=== PATIENT | female | born 1945 | race African-American/Black ===

== ENCOUNTER 2019-02-06 14:42 | Emergency (ER) | payer MEDICARE ==
[~2019-02-06] VITALS: Ht 170.2 cm; Wt 85.7 kg
[~2019-02-06 14:42] MED LIST: CLOPIDOGREL BIS75 MG PO; LORCET HD; ROSOVASTATIN; Z POTASSIUM CHLOR PO; Z.0.ACTONEL35 MG PO; Z.0.AMLODIPINE BESYL PO; Z.0.GABAPENTIN600 MG PO; Z.0.HYDROCHLOROTHIA2 PO; Z.0.LISINOPRIL20 MG PO; Z.1.ISOSORBIDE MONO3 PO; Z.2.HYDROCODON-ACE1; [UNRECOGNIZED DRUG - OTHER] PO
--- OUTSIDE RECORDS SUMMARY | 2019-02-06 14:45 | XMS REPORT ---
Author Author [facility] Address Unknown Phone Unavailable Care Team Providers Care Alarm Installer Name Role Phone Unavailable Unavailable Problems This patient has no known problems. Allergies, Adverse Reactions, Alerts This patient has no known allergies or adverse reactions. Medications This patient has no known medications. Results Test Description Test Time Test Comments Text Results Atomic Results Result Comments SCR MAMM LEFT [place] CAD DIGITAL 2018-10-14 14:43:44 - SCR MAMM LEFT [place] CAD DIGITALUNILATERAL LEFT DIGITAL SCREENING MAMMOGRAM 3D/2D WITH CAD: 10/14/2018CLINICAL: Asymptomatic. Digital breast tomosynthesis was performed in addition to routine CC and MLO views. Current mammographic images were evaluated by either a Search123 M-Vu or a Results [employer] ImageChecker CAD (computer aided detection system). Comparison is made to exams dated 05/28/2017 mammogram, mammogram, and 01/17/2015 mammogram - [facility]. The tissue of the left breast is predominantly fatty. Status post mastectomy right breast.There are benign calcifications in the left breast. There also are benign densities and intramammary nodes in the left breast. No suspicious mass, architectural distortion, malignant type calcification, or lymph node abnormality detected. Breast architecture is stable compared to prior exams.IMPRESSION: BENIGNThere is no mammographic evidence of malignancy. Resume annual screening mammography in one year. Herson Bacon M.D. ss/:10/14/2018 14:43:44 Financial Services Director: Joy NAQVI, [facility] sent: BIRADS 1-2 Normal Mammogram BI-RADS: 2 Benign
--- OUTSIDE RECORDS SUMMARY | 2019-02-06 14:45 | XMS REPORT | Summary of Care ---
Author Author [facility] - Health Organization [facility] - Health Address Unknown Phone Unavailable Care Team Providers Care Lead Shop Operator Name Role Phone Josseline Velasco PCP Encounter Details Care Team Description Date Type Department Doctor Unassigned, Valinda [address] [place] [address] 01/12/2019 Orders Only [facility] [address] [place] [address] Allergies Comments Active Allergy Reactions Severity Noted Date Iodine Hives 05/28/2017 documented as of this encounter (statuses as of 01/12/2019) Medications End Date Status Medication Sig Dispensed Refills Start Date Active cephALEXin 500 mg capsule 0 8 Active doxycycline 100 mg tablet 0 7 Active furosemide 20 mg tablet Take 20 mg by 0 mouth daily. Active clopidogrel 75 mg tablet Take 75 mg by 0 mouth daily. Active metoprolol succinate XL Take 200 mg 0 200 mg 24 hr tablet by mouth daily. Active hydroCHLOROthiazide 25 mg Take 25 mg by 0 tablet mouth daily. Active isosorbide mononitrate 60 Take 60 mg by 0 mg 24 hr tablet mouth. Active aspirin 81 mg chewable Take 81 mg by 0 tablet mouth daily. Active lisinopril 40 mg tablet Take 40 mg by 0 mouth daily. Active gabapentin 600 mg tablet Take by 0 mouth. Active Dexlansoprazole 60 mg Take by 0 capsule mouth. Active rosuvastatin 40 mg tablet Take 40 mg by 0 mouth at bedtime. Active linaclotide 145 mcg Take by 0 capsule mouth. documented as of this encounter (statuses as of 01/12/2019) Active Problems Problem Noted Date Postmenopause bleeding 06/25/2017 documented as of this encounter (statuses as of 01/12/2019) Social History Date Tobacco Use Types Packs/Day Years Used Never Smoker Smokeless Tobacco: Never Used Drinks/Week oz/Week Comments Alcohol Use ocassionally Yes Sex Assigned at Date Recorded Not on file Industry Job Start Date Occupation Not on file Not on file Not on file Travel End Travel History Travel Start No recent travel history available. documented as of this encounter Last Filed Vital Signs Not on filedocumented in this encounter Plan of Treatment Care Team Description Date Type Specialty Dustin Pretty MD [id number] [place] [address] [phone] 01/17/2019 Office Visit Ophthalmology Health Maintenance Due Date Last Done Comments HEPATITIS C (HCV) SCREEN 1945 DTaP,Tdap,and Td Vaccines 1965 (1 - Tdap) MAMMOGRAM 1986 COLONOSCOPY 1996 Zoster Recombinant 1996 Vaccine (SHINGRIX) (1 of 2) Medicare Wellness Visit 2011 Osteoporosis Screening 2011 PNEUMOCOCCAL VACCINES 65+ 2011 (1 of 2 - PCV13) INFLUENZA VACCINE (#1) 2019 documented as of this encounter Procedures Comments Procedure Name Priority Date/Time Associated Diagnosis REFERRAL- Routine 01/12/2019 REQUEST/RESPONSE 12:01 AM CDT documented in this encounter Results Not on filedocumented in this encounter Insurance Type Payer Benefit Subscriber ID Effective Phone Address Plan / Dates Group Medicare Adv [facility] - AARP [id number] 2017-P MANAGED MEDICARE MEDICARE resent COMPLETE documented as of this encounter
--- OUTSIDE RECORDS SUMMARY | 2019-02-06 14:46 | XMS REPORT | Summary of Care ---
Author Author Scottie Myrick, Luz Maria Ba Unknown Address Unknown Phone Unavailable Care Team Providers Care Bench Mover Name Role Phone LISBET Morrison, ASHLEY Unavailable Unavailable JAEL Morrison, IBAN Unavailable Unavailable ISABEL Hudson.ORadha, RAUL Unavailable Unavailable Scottie Myrick, Luz Maria Unavailable Unavailable LISBET DE LEÓN, ASHLEY Galvan Unavailable Unavailable ISABEL WEBER, RAUL E Unavailable Unavailable KITA Morrison, MANNIE Unavailable Unavailable Iban Soni MD Unavailable Unavailable ELSI DE LEÓN, SHIRLEY Troncoso Unavailable Unavailable Unavailable Unavailable Functional Status Name Dates Details Functional status health issues are not documented Status: Name Dates Details Cognitive status health issues are not documented Status: Problems Name Dates Details Abnormal vaginal bleeding (623.8, N93.9) Status: Active Abnormal glucose (790.29, R73.09) Status: Active Fatigue (780.79, R53.83) Status: Active Shingles outbreak (053.9, B02.9) Status: Active Influenza vaccination declined by patient (V64.06, Z28.21) Status: Active Pneumococcal vaccination declined by patient (V64.06, Z28.21) Status: Active Advance care planning (V65.49, Z71.89) Status: Active Chest pain (786.50, R07.9) Status: Active Osteoarthritis of hip (715.95, M16.9) Status: Active Irritable bowel (564.1, K58.9) Status: Active Shortness of breath (786.05, R06.02) Status: Active GERD without esophagitis (530.81, K21.9) Status: Active Pain pelvic (R10.2) Status: Active Atherosclerotic heart disease of [place] coronary artery without angina pectoris (414.01, I25.10) Status: Active Cath Placement Of Stent 3 Status: Active Flank pain, chronic (789.09, R10.9) Status: Active Grief (309.0, F43.21) Status: Active Ankle edema, bilateral (719.07, M25.471) Status: Active Limb pain (729.5, M79.609) Status: Active Otitis media, unspecified, left ear (382.9, H66.92) Status: Active Pre-syncope (780.2, R55) Status: Active Atherosclerosis of coronary artery (414.00, I25.10) Status: Active Breast cancer screening (V76.10, Z12.39) Status: Active Postmenopausal state (V49.81, Z78.0) Status: Active Hyperlipidemia (272.4, E78.5) Status: Active Hot flash, menopausal (627.2, N95.1) Status: Active Urinary incontinence (788.30, R32) Status: Active Generalized anxiety disorder (300.02, F41.1) Status: Active Need for hepatitis C screening test (V73.89, Z11.59) Status: Active Urinary symptom or sign (788.99, R39.9) Status: Active Post-menopausal bleeding (627.1, N95.0) Status: Active Prolapse of bladder Status: Active Post-menopausal bleeding (627.1, N95.0) Status: Active Frequency of urination (788.41, R35.0) Status: Active Essential (primary) hypertension (401.9, I10) Status: Active CAD (coronary artery disease) (414.00, I25.10) Status: Active Mild AI (aortic insufficiency) (424.1, I35.1) Status: Active Follow up (V67.9, Z09) Status: Active Urgency of urination (788.63, R39.15) Status: Active Urgency incontinence (788.31, N39.41) Status: Active Vaginal atrophy (627.3, N95.2) Status: Active Nocturia (788.43, R35.1) Status: Active Acquired nasolacrimal duct obstruction, 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 Quantity: 90 IBAN SONI M.D. Active Naproxen Sodium 550 MG Oral Tablet TAKE 1 TABLET TWICE DAILY WITH MEALS. * Quantity: 180 Refills: 1 ASHLEY FRAUSTO M.D. * Start : 10-Aug-2013 Active Isosorbide Mononitrate ER 60 MG Oral Tablet Extended Release 24 Hour TAKE 1 TABLET TWICE DAILY * Quantity: 180 Refills: 1 IBAN SONI M.D. * Start : 21-Mar-2014 Active Nitroglycerin 0.4 MG Sublingual Tablet Sublingual PLACE 1 TAB UNDER THE TONGUE EVERY 5 MINUTES FOR UP TO 3 DOSES NEEDED FOR [address] PAIN. CALL 911 IF PAIN PERSISTS 5 MINUTES AFTER 3rd DOSE * Quantity: 25 Refills: 6 IBAN SONI M.D. Active Tylenol CAPS PRN * Refills: 0 Active Furosemide 20 MG Oral Tablet TAKE 1 TABLET BY MOUTH DAILY * Quantity: 90 Refills: 1 IBAN SONI M.D. * Start : 28-Nov-2016 Active Lisinopril 40 MG Oral Tablet TAKE 1 TABLET DAILY * Quantity: 90 Refills: 1 IBAN SOIN M.D. Active Pravastatin Sodium 40 MG Oral Tablet TAKE 1 TABLET DAILY. * Quantity: 90 Refills: 1 ASHLEY FRAUSTO M.D. * Start : 05-Jan-2018 Active Aspir-Low 81 MG Oral Tablet Delayed Release TAKE 1 TABLET DAILY. * Quantity: 90 Refills: 1 IBAN SONI M.D. * Start : 18-Jun-2018 Active Temazepam 15 MG Oral Capsule TAKE 1 CAPSULE BY MOUTH EVERY DAY AT BEDTIME * Quantity: 90 Refills: 0 ASHLEY FRAUSTO M.D. * Start : 01-Dec-2018 Active Metoprolol Succinate ER 200 MG Oral Tablet Extended Release 24 Hour TAKE 1 TABLET AM AND 0.5 PM DAILY * Quantity: 180 Refills: 1 IBAN SONI M.D. Active Linzess 145 MCG Oral Capsule * Refills: 0 * Start : 10-Jan-2019 Active Trospium Chloride ER 60 MG Oral Capsule Extended Release 24 Hour Take 1 capsul qd * Quantity: 90 Refills: 0 ISABEL D.ORAUL Garcia * Start : 18-Jan-2019 Active hydrALAZINE HCl - 50 MG Oral Tablet TAKE 1 TABLET 3 TIMES DAILY. * Quantity: 90 Refills: 0 IBAN SONI M.D. * Start : 18-Jan-2019 Active Allergies and Adverse Reactions Name Dates Details Iodine SOLN (Allergy) Status: Active House Dust (Allergy) Status: Denied Past Medical History Name Dates Details History of chest pain (V13.89, Z87.898) Status: Resolved History of colonic polyps (V12.72, Z86.010) Status: Resolved History of History of colonoscopy (V45.89, Z98.890) Status: Resolved History of irritable bowel syndrome (V12.79, Z87.19) Status: Resolved History of Lower abdominal pain (789.09, R10.30) Status: Resolved History of malignant neoplasm of breast (V10.3, Z85.3) Status: Resolved History of osteoarthritis (V13.4, Z87.39) Status: Resolved Procedures Procedure Dates Details [N] 2D Echo complete, with Doppler 24828 Date: 07-Jan-2019 History of Breast Surgery Lumpectomy Completed History of Rotator Cuff Repair Completed History of Breast Surgery Mastectomy Completed History of Colonoscopy Completed History of Cath Stent Placement Completed Cath Placement Of Stent 3 Immunization Name Dates Details Immunizations not documented Family History Name Dates Details Family history of Denial Of Any Significant Medical History Comments: Family History Status: Active Name Dates Details Family history of Denial Of Any Significant Medical History Status: Active Name Dates Details Family history of Denial Of Any Significant Medical History Status: Active Name Dates Details Family history of hypertension (V17.49, Z82.49) Status: Active Name Dates Details Family history of myocardial infarction (V17.3, Z82.49) Status: Active Social History Name Dates Details - Status: Name Dates Details Never smoker Former smoker Vital Signs Date Test Result Details 30-Rmb-050261:14 BP Systolic 191 mm[Hg] Status: Comments: Location: LUE; Position: Sitting BP Diastolic 75 mm[Hg] Status: Comments: Location: LUE; Position: Sitting Height 62 in Status: Weight 179.375 lb Status: Body Mass Index Calculated 32.81 kg/m2 Status: Body Surface Area Calculated 1.83 m2 Status: Temperature 97.8 f Status: Comments: Method: Temporal Heart Rate 71 /min Status: Respiration Rate 16 /min Status: Physical Findings 0 Status: Comments: Pain Scale Physical Findings 0 Status: Comments: Alcohol Screen - How many times in the past yr have you had 5 (for M) or 4 (for F) or 4 (for all > 65yrs) or more drinks in a day? :05 BP Systolic 205 mm[Hg] Status: Comments: Location: LUE; Position: Sitting BP Diastolic 72 mm[Hg] Status: Comments: Location: LUE; Position: Sitting Heart Rate 63 /min Status: :03 BP Systolic 217 mm[Hg] Status: Comments: Location: LUE; Position: Sitting BP Diastolic 64 mm[Hg] Status: Comments: Location: LUE; Position: Sitting :40 BP Systolic 189 mm[Hg] Status: Comments: Location: LUE; Position: Sitting BP Diastolic 72 mm[Hg] Status: Comments: Location: LUE; Position: Sitting Heart Rate 84 /min Status: :20 BP Systolic 205 mm[Hg] Status: Comments: Location: LUE; Position: Sitting BP Diastolic 68 mm[Hg] Status: Comments: Location: E; Position: Sitting Height 62 in Status: Weight 180.4375 lb Status: Body Mass Index Calculated 33 kg/m2 Status: Body Surface Area Calculated 1.83 m2 Status: Temperature 97.7 f Status: Comments: Method: Oral Heart Rate 81 /min Status: :50 BP Systolic 168 mm[Hg] Status: Comments: Location: E; Position: Sitting BP Diastolic 73 mm[Hg] Status: Comments: Location: E; Position: Sitting Heart Rate 85 /min Status: Comments: Location: L Radial; :38 BP Systolic 179 mm[Hg] Status: Comments: Location: LUE; Position: Sitting BP Diastolic 80 mm[Hg] Status: Comments: Location: LUE; Position: Sitting Height 62 in Status: Weight 179 lb Status: Body Mass Index Calculated 32.74 kg/m2 Status: Body Surface Area Calculated 1.82 m2 Status: Heart Rate 87 /min Status: Comments: Location: L Radial; Results Date Description Value Details Results not documented Plan of Care Name Dates Details Planned Observations Planned Goals not documented Planned Encounters Appointment; CLEMENTINA MCCANN On: 08-Jul-2019 9:00 Appointment; IBAN SONI M.D. On: 08-Jul-2019 10:00 Interventions Provided Medication Changes* hydrALAZINE HCl - 50 MG Oral Tablet - Renew Instructions Name Dates Details Instructions not documented Encounters Appointment; ASHLEY FRAUSTO M.D. Encounter Diagnosis: Problem not documented On: 29-Apr-2017 13:45 Appointment; IBAN SONI M.D. Encounter Diagnosis: Problem not documented On: 05-Jun-2017 11:20 Appointment; LASHAWNGREGOR-MS, ECHO Encounter Diagnosis: Problem not documented On: 04-Dec-2017 13:00 Appointment; IBAN SONI M.D. Encounter Diagnosis: Problem not documented On: 04-Dec-2017 14:00 Appointment; ASHLEY FRAUSTO M.D. Encounter Diagnosis: Problem not documented On: 15-Dec-2017 11:15 Appointment; ASHLEY FRAUSTO M.D. Encounter Diagnosis: Problem not documented On: 05-Jan-2018 9:00 Appointment; GARO DELUNA M.D. Encounter Diagnosis: Problem not documented On: 27-Jan-2018 13:45 Appointment; ASHLEY FRAUSTO M.D. Encounter Diagnosis: Problem not documented On: 22-Feb-2018 14:00 Appointment; GARO DELUNA M.D. Encounter Diagnosis: Problem not documented On: 21-Apr-2018 10:30 Appointment; IBAN SONI M.D. Encounter Diagnosis: Problem not documented On: 18-Jun-2018 10:20 Appointment; LASHAWNGREGOR-MS, NUCLEAR Encounter Diagnosis: Problem not documented On: 07-Jul-2018 11:00 Appointment; IBAN SONI M.D. Encounter Diagnosis: Problem not documented On: 07-Jul-2018 16:20 Appointment; ASHLEY FRAUSTO M.D. Encounter Diagnosis: Problem not documented On: 29-Jul-2018 14:45 Appointment; IBAN SONI M.D. Encounter Diagnosis: Problem not documented On: 03-Aug-2018 10:20 Appointment; ASHLEY FRAUSTO M.D. Encounter Diagnosis: Problem not documented On: 01-Dec-2018 12:30 Appointment; RAUL HALL D.O. Encounter Diagnosis: Problem not documented On: 13-Dec-2018 12:45 Appointment; IBAN SONI M.D. Encounter Diagnosis: Problem not documented On: 07-Jan-2019 10:20 Appointment; RAUL HALL D.O. Encounter Diagnosis: Problem not documented On: 10-Jan-2019 15:10 Appointment; ASHLEY FRAUSTO M.D. Encounter Diagnosis: Problem not documented On: 31-Jan-2019 10:00
--- OUTSIDE RECORDS SUMMARY | 2019-02-06 14:46 | XMS REPORT | Summary of Care ---
Author Author [facility] - Health Organization [facility] - Health Address Unknown Phone Unavailable Care Team Providers Care Manager Marketing Name Role Phone Josselien Velasco PCP Reason for Visit * Reason Comments EYES TEARING * (Routine) Referred By Contact Referred To Contact Status Reason Specialty Diagnoses / Procedures Josseline Velasco [address] [facility] [place] [address] Dustin Pretty MD [address] [facility] [id number] [place] [id number] Authorized OPH-OPHTHALMOLOG Diagnoses Y / Acquired stenosis Ophthalmology of right nasolacrimal duct P rocedures CONSULT/REFERRAL OPHTHALMOLOGY Encounter Details Care Team Description Date Type Department Dustin Pretty MD [address] [facility] [id number] [place] [address] Bilateral epiphora (Primary Dx); Obstruction of both lacrimal ducts; Pinguecula of both eyes; Pseudophakia of both eyes; Essential hypertension 01/17/2019 Office Visit [facility], [address] [place] [address] Allergies Comments Active Allergy Reactions Severity Noted Date Iodine Hives 05/28/2017 documented as of this encounter (statuses as of 01/17/2019) Medications End Date Status Medication Sig Dispensed [...] 145 mcg Take by 0 capsule mouth. Active dextran 70-hypromellose Place 1 Drop 0 (ARTIFICIAL in both eyes TEARS,[id number],) as needed. 0.1-0.3 % documented as of this encounter (statuses as of 01/17/2019) Active Problems Problem Noted Date Bilateral epiphora 01/17/2019 Overview: Added automatically from request for surgery [id number] Obstruction of both lacrimal ducts 01/17/2019 Overview: Added automatically from request for surgery [id number] Postmenopause bleeding 06/25/2017 documented as of this encounter (statuses as of 01/17/2019) Social History Date Tobacco Use Types Packs/Day [...] of this encounter Last Filed Vital Signs Reading Time Taken Comments Vital Sign - - Blood Pressure - - Pulse - - Temperature - - Respiratory Rate - - Oxygen Saturation - - Inhaled Oxygen Concentration 90.3 kg (199 lb) 01/17/2019 2:05 PM CDT Weight - - Height 36.4 08/04/2017 2:22 PM CDT Body Mass Index documented in this encounter Patient Instructions * Patient Instructions* Dustin Pretty MD - 01/17/2019 2:00 PM CDT [id number] Checking Your Blood Pressure Date Last Reviewed: 08/29/201519991045-4358 [employer]. [address] [place] [address] 7. All rights reserved. This information is not intended as a substitute for pro fessional medical care. Always follow your healthcare professional's instruction s. documented in this encounter Progress Notes * Dustin Pretty MD - 01/17/2019 2:00 PM CDT Cc: EYES TEARING Consulted by Dr. Josseline Velasco/Taylor for tearing Paola Garza is a 73 year old female. HPI Pt presents for evaluation of suspected nasal lacrimal duct obstruction and epip hora. Pt reports that for over 2 years now she has experienced constant tearing of the right eye > left eye with her tears running down her cheeks bilaterally and occasional white discharge from the eye. Denies any history of trauma or use of chemotherapies. Denies any previous procedures on the lacrimal system. No significant ocular history beyond CE/IOL OU. Past Medical History: Diagnosis Date Breast disorder breast cancer-1982 CAD (coronary atherosclerotic disease) Cancer Breast cancer-1982, right breast Kidney disease kidney stones 2007 Review of Systems Reviewed ROS done by the biometric technician during this encounter and there are addition s noted above. Assessment ICD-10-CM ICD-9-CM 1. Bilateral epiphora H04.203 375.20 2. Obstruction of both lacrimal ducts H04.553 375.56 3. Pinguecula of both eyes: sun/wind protection H11.153 372.51 4. Pseudophakia of both eyes: Rd warnings Z96.1 V43.1 5. Essential hypertension: control bp per PCP I10 401.9 Gayla Guevara was seen today for eyes tearing. Diagnoses and all orders for this visit: Bilateral epiphora due to Obstruction of bilateral lacrimal ducts OD > OS - Symptoms of epiphora with white discharge - Puncta appear open - Probing demonstrates bilateral NLDO OD > OS - Given findings discussed the R/B/A to DCR OU with Enamorado Tube II and MMC 0.4 mg/cc x 3 mintues with the patient who is in agreement and wishes to proceed - Written consent obtained in clinic Miguel Salazar MD Ophthalmology PGY-4 documented in this encounter Plan of Treatment Care Team Description Date Type Specialty Dustin Pretty MD [id number] [place] [address] [phone] Bilateral epiphora 03/07/2019 Hospital Surgery Encounter Dustin Pretty MD [id number] [place], [place] [address] DACRYOCYSTORHINOSTOMY 03/07/2019 Surgery Surgery Dustin Pretty MD [id number] [place] [address] [phone] 03/08/2019 Office Visit Ophthalmology Health Maintenance Due Date Last Done Comments HEPATITIS C (HCV) SCREEN 1945 DTaP,Tdap,and Td Vaccines 1965 (1 - Tdap) MAMMOGRAM 1986 COLONOSCOPY 1996 Zoster Recombinant 1996 Vaccine (SHINGRIX) (1 of 2) Medicare Wellness Visit 2011 Osteoporosis Screening 2011 PNEUMOCOCCAL VACCINES 65+ 2011 (1 of 2 - PCV13) INFLUENZA VACCINE (#1) 2019 documented as of this encounter Results Not on filedocumented in this encounter Visit Diagnoses Diagnosis Bilateral epiphora - Primary Epiphora, unspecified as to cause 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
--- OUTSIDE RECORDS SUMMARY | 2019-02-06 14:46 | XMS REPORT | Summary of Care ---
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 0.1-0.3 % documented as of this encounter (statuses as of 01/17/2019) Active Problems Problem Noted Date Bilateral epiphora 01/17/2019 Overview: Added automatically from request for surgery [id number] Obstruction of both lacrimal ducts 01/17/2019 Overview: Added automatically from request for surgery [id number] Postmenopause bleeding 06/25/2017 documented as of this [...] Pretty MD - 01/17/2019 2:00 PM CDT Epyr-hq-Dwxf Checking Your Blood Pressure Date Last Reviewed: 08/29/201519998414-3562 [employer]. [address] [place] [address] 7. All rights reserved. This information is [...] of Systems Reviewed ROS done by the upholstery technician during this encounter and there are [...] Specialty Dustin Pretty MD [address] [place] [address] [phone] Bilateral epiphora 03/07/2019 Hospital Surgery Encounter Dustin Pretty MD [id number] [place], [place] [address] DACRYOCYSTORHINOSTOMY 03/07/2019 Surgery Surgery Dustin Pretty MD [id number] [place] [address] [phone] 03/08/2019 Office Visit Ophthalmology Health Maintenance Due [...] Address Plan / Dates Group Medicare Adv [facility] - [employer] [id number] 2017-P MANAGED MEDICARE MEDICARE resent COMPLETE documented as of this encounter
--- OUTSIDE RECORDS SUMMARY | 2019-02-06 14:46 | XMS REPORT | Summary of Care ---
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 0.1-0.3 % documented as of this encounter (statuses as of 01/18/2019) Active Problems Problem Noted Date Bilateral epiphora 01/17/2019 Overview: Added automatically from request for surgery [id number] Obstruction of both lacrimal ducts 01/17/2019 Overview: Added automatically from request for surgery [id number] Postmenopause bleeding 06/25/2017 documented as of this encounter (statuses as of 01/18/2019) Social History Date Tobacco Use Types Packs/Day [...] Date Type Specialty Dustin Pretty MD [address] [id number] Bilateral epiphora 03/07/2019 Hospital Surgery Encounter Dustin Pretty MD [id number] [place] [id number] DACRYOCYSTORHINOSTOMY 03/07/2019 Surgery Surgery Dustin [facility] MD [address] [facility] [address] [id number] 03/08/2019 Office Visit Ophthalmology Health Maintenance Due [...] Comments Procedure Name Priority Date/Time Associated Diagnosis MEDICAL RELEASE/CLEARANCE Routine 01/18/2019 FORMS 12:01 AM CDT documented in this encounter Results Not on filedocumented in this encounter Insurance Type Payer Benefit Subscriber ID Effective Phone Address Plan / Dates Group Medicare Adv [facility] [id number] 2017-P MANAGED MEDICARE MEDICARE resent COMPLETE documented as of this encounter
--- OUTSIDE RECORDS SUMMARY | 2019-02-06 14:46 | XMS REPORT | Summary of Care ---
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 Role Phone Josseline Velasco PCP Encounter Details Care Team Description Date Type Department Doctor Unassigned, [place] [address] [place] [address] 01/17/2019 Letter (Out) [facility] [employer] [facility] [address] [place] [phone] Allergies Comments Active Allergy Reactions Severity Noted [...] of 01/17/2019) Active Problems Problem Noted Date Postmenopause bleeding [...] Specialty Dustin Pretty MD [id number] [place] [address] [phone] Arrived 01/17/2019 Office Visit Ophthalmology Health Maintenance Due [...] Address Plan / Dates Group Medicare Adv [facility] - [employer] [id number] 2017-P MANAGED MEDICARE MEDICARE resent COMPLETE documented as of this encounter
== END 2019-02-06 15:52 | disposition home or self-care (01) ==
LOC: ER 14:42
DX: H01.002 Unspecified blepharitis right lower eyelid (principal); I10 Essential (primary) hypertension; Z85.3 Personal history of malignant neoplasm of breast
CPT/HCPCS: 99282

== ENCOUNTER 2020-03-23 01:38 | Emergency (ER) | payer MEDICARE ==
[~2020-03-23] VITALS: Ht 170.2 cm; Wt 85.7 kg
--- NOTE | 2020-03-23 01:51 | Emergency Department Note ---
History of Present Illnes History of Present Illness Chief Complaint: Hypertension History of Present Illness This is a 74 year old female WITH C/O ELEVATED BLOOD PRESSURE. DENIES HEADACHE, CHEST PAIN, SOB. . Historian: Patient Arrival Mode: Car Onset (how long ago): hour(s) (3) Location: NONE Quality: ELEVATED BLOOD PRESSURE Radiation: Reports non-radiation Severity: mild Onset quality: gradual Duration (how long): hour(s) (3) Timing of current episode: constant Progression: unchanged Chronicity: chronic Context: Denies recent illness, Denies recent surgery Relieving factors: none Exacerbating factors: none Associated symptoms: Reports denies other symptoms Past Medical/Family History Physician Review I have reviewed the patient's past medical and family history. Any updates have been documented here. Past Medical History Recent Fever: No Clinical Suspicion of Infectio: No New/Unexplained Change in Ment: No Past Medical History: Hypertension Other Medical History: R BREAST CANCER; WITH LYMPH NODE REMOVAL Other Surgery: ROTATOR CUFF Social History Smoking Cessation: Never Smoker Alcohol Use: None Any Illegal Drug Use: No Family History Family history of heart diseas: No Other Last Tetanus: UNK Review of Systems Review of Systems Constitutional: Reports no symptoms EENTM: Reports no symptoms Cardiovascular: Reports no symptoms Respiratory: Reports no symptoms Gastrointestinal: Reports no symptoms Genitourinary: Reports no symptoms Musculoskeletal: Reports no symptoms Integumentary: Reports no symptoms Neurological: Reports no symptoms Psychological: Reports no symptoms Endocrine: Reports no symptoms Hematological/Lymphatic: Reports no symptoms Physical Exam Related Data Allergies: Coded Allergies: Iodine (Verified Allergy, Intermediate, 12/18/11) Triage Vital Signs Vital Signs Date Time Temp Pulse Resp B/P (MAP) Pulse Ox O2 Delivery O2 Flow Rate FiO2 03/23/20 01:40 98.3 86 17 161/64 100 Room Air Vital signs reviewed: Yes Physical Exam CONSTITUTIONAL Constitutional: Present well-developed, Present well-nourished; Absent distressed HENT HENT: Present normocephalic, Present atraumatic, Present oropharynx clear/moist, Present nose normal HENT L/R: Present left ext ear normal, Present right ext ear normal EYES Eyes: Reports PERRL, Reports conjunctivae normal NECK Neck: Present ROM normal PULMONARY Pulmonary: Present effort normal, Present breath sounds normal CARDIOVASCULAR Cardiovascular: Present regular rhythm, Present heart sounds normal, Present capillary refill normal, Present normal rate GASTROINTESTINAL Abdominal: Present soft, Present nontender, Present bowel sounds normal GENITOURINARY Genitourinary: Present exam deferred SKIN Skin: Present warm, Present dry MUSCULOSKELETAL Musculoskeletal: Present ROM normal NEUROLOGICAL Neurological: Present alert, Present oriented x 3, Present no gross motor or sensory deficits PSYCHOLOGICAL Psychological: Present mood/affect normal, Present judgement normal Procedures 12 Lead ECG Interpretation ECG Interpretation : ECG: ECG 1 Marriage And Family Counselor: Interpreted by ED physician Date: Mar 23, 2020 Time: 01:44 Rhythm: sinus rhythm Rate: normal BPM: 83 QRS axis: normal ST segments normal: Yes T waves normal: No T wave inversion: V1, V2 Other findings: LVH Clinical Impression: abnormal ECG Assessment & Plan Medical Decision Making MDM PT WITH HTN WITHOUT ANY SYMPTOMS BLOOD PRESSURE DOES NOT REQUIRE TREATMENT AT THIS TIME Assessment & Plan Final Impression: (1) HTN (hypertension) Depart Disposition: HOME, SELF-CARE Last Vital Signs Date Time Temp Pulse Resp B/P (MAP) Pulse Ox O2 Delivery O2 Flow Rate FiO2 03/23/20 01:40 98.3 86 17 161/64 100 Room Air Home Meds Reported Medications Hydrocodone Bit/Acetaminophen (HYDROCODON-ACETAMINOPH 2.5-325) 1 Each Tablet, PRN 11/28/11 Risedronate Sodium (Actonel) 35 Mg Tablet, 35 MG PO DAILY 11/28/11 Hydrochlorothiazide (Hydrochlorothiazide) 25 Mg Tablet, 25 MG PO DAILY 11/28/11 [Rosovastatin] No Conflict Check, 40 DAILY 11/28/11 Clopidogrel Bisulfate (Clopidogrel Bisulfate) 75 Mg Tablet, 75 MG PO DAILY 11/28/11 Isosorbide Mononitrate (Isosorbide Mononitrate) 30 Mg Tab.sr.24h, 40 MG PO 11/28/11 Amlodipine Besylate (Amlodipine Besylate) 5 Mg Tablet, 5 MG PO DAILY 11/28/11 Lisinopril (Lisinopril) 20 Mg Tablet, 20 MG PO DAILY 11/28/11 Potassium Chloride (Potassium Chloride) 8 Meq Tablet.sa, 8 MEQ PO DAILY 11/28/11 Metoprolol Succinate (Metoprolol Succinate) 200 Mg Tab.sr.24h, 200 MG PO DAILY 11/28/11 Gabapentin (Gabapentin) 600 Mg Tablet, 600 MG PO DAILY 11/28/11 Hydrocodone Bit/Acetaminophen (Lorcet Hd Capsule) 1 Each Capsule 11/09/11 ODALIS YAN MD Mar 23, 2020 01:51
--- OUTSIDE RECORDS SUMMARY | 2020-03-24 09:54 | XMS REPORT | Continuity of Care Document ---
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 Role Phone [facility] [employer] Unavailable Un available Problems Problem Status Onset Date Classification Date Reported Comments Source Unilateral primary osteoarthritis, unspecified knee 01/13/2018 07/26/2018 [facility] Unspecified abdominal pain 12/30/2017 07/11/2018 OPHELIA Martins Discharge Diagnosis: CAD S/P percutaneou s coronary angioplasty 09/02/2015 09/05/2015 [facility] CCL/PCI STENT/DX: ATHEROSCLEROSIS OF COR Active 07/25/2015 [facility] 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, 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 07/25/2015 [facility] ATHEROSCLEROSIS OF CORONARY ARTERY, 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 Active 07/25/2015 [facility] I25.10 Active 04/24/2015 [facility] Hyperlipidemia Active 09/08/2013 [facility] Hypertension Active 09/08/2013 [facility] Shortness Of Breath Active 09/08/2013 [facility] Chest Pain Active 09/08/2013 [facility] Coronary Artery Disease Active 09/08/2013 [facility] Osteoarthritis Of The Hip Acti ve 09/08/2013 [facility] Cath Placement Of Stent 3 Acti ve 09/08/2013 [facility] Prediabetes Active 09/08/2013 [facility] Malignant tumor of breast (disorder) Resolved Problem [facility], [facility] [place], [facility] Coronary arteriosclerosis (disorder) Resolved Problem [facility], [facility] [place], [facility] Hyperlipidemia (disorder) Reso lved Problem [facility], [facility] [place],[facility], [facility] Insomnia (disorder) Resolved Problem 12/19/2018 [facility], [facility] [place],[facility], [facility] Irritable colon (disorder) Res olved Problem [facility], [facility] [place],[facility] Herpes zoster (disorder) Resol alfreda Problem [facility], [facility] [place],[facility] Dyspnea (finding) Resolved Problem 12/19/2018 [facility], [facility] [place],[facility] RT SHOULDER Active [facility] [place] ATHSCL HEART DISEASE OF [place] CORONARY Active [facility] ENCNTR FOR OBS FOR OTH SUSPECTED DISEASE Active [facility] Medications Medication Details Route Status Patient Instructions Ordering Provider Order Date Source Lisinopril Notes: (Same as: Pr inivil) Inactive 09/02/2015 [facility] metoprolol tartrate 25 mg oral tablet 25 mg = 1 tab, PO, BID, # 60 tab, 0 Refill(s) Active 09/02/2015 [facility] nt lisinopril 2.5 mg oral tablet 2.5 mg, PO, Daily, # 1 box, 0 Refill(s) Active 09/02/2015 [facility] Lipitor Notes: Same as Lipitor No Longer Active 09/02/2015 [facility] Crestor 40 mg, Route: PO, Drug form: TAB, Bedtime, Dosing Weight 90.455, kg, Start date: 09/01/15 21:00:00 CDT, Duration: 30 day, Stop date: 09/30/15 21:00:00 CDT No Longer Active 09/02/2015 [facility] nter heparin sodium, porcine 2500 UNT/ML Injectable Solutio n Notes: porcine heparin No Longer Active 09/01/2015 [facility] nter metoprolol tartrate Notes: (Sa me as: Lopressor) No Longer Active 09/01/2015 [facility] Trazodone Hydrochloride 50 MG Oral Tablet Notes: (Same As: Desyrel) No Longer Active 09/01/2015 [facility] Aspirin 81 MG Chewable Tablet Notes: Take with food. No Longer Active 09/01/2015 [facility] clopidogrel Notes: (Same As: P lavix) No Longer Active 09/01/2015 [facility] valacyclovir Notes: (Same As: Valtrex) Inactive 09/01/2015 [facility] Nitroglycerin Notes: (Same as: Nitroquick, Nitrostat) "Do Not Crush" Sublingual tablet No Longer Active 09/01/2015 [facility] tramadol hydrochloride 50 MG Oral Tablet Notes: Not to exceed 400mg/day. (Same As: Ultram) No Longer Active 09/01/2015 [facility] nt Sodium Chloride 0.9% IV IV, 25 0 ml/hr, ONCE, Start date: 08/31/15 13:45:00 CDT, 250 ml Inactive 08/31/2015 [facility] nt methylPREDNISolone Notes: (Jay e as:Solu-MEDROL, A- Methapred) Inactive 08/31/2015 [facility] Benadryl Notes: (Same as: Barbara dryl) Inactive 08/31/2015 [facility] Pepcid Notes: (Same as: Pepcid ) Can be dilute in 5-10cc NS IVP: Slow IV push over at least 2 minutes. Inactive 08/31/2015 [facility] Sodium Chloride 0.9% IV 1,000 mL 1,000 mL, Rate: 75 ml/hr, Infuse over: 13.3 hr, Route: IV, Dosing Weight 90.455 kg, Total Volume: 1,000, Start date: 08/31/15 12:46:00 CDT, Duration: 1 doses or times, Stop date: 09/01/15 2:03:00 CDT Inactive 08/31/2015 [facility] Nitroglycerin 0.4 mg, SL, Q5Mi n, PRN Chest Pain, 0 Refill(s) Active 05/09/2015 [facility] Nitroglycerin Notes: (Same as: Nitroquick, Nitrostat) "Do Not Crush" Sublingual tablet Inactive 05/09/2015 [facility] clopidogrel 75 mg oral tablet 75 mg = 1 tab, PO, Daily, 0 Refill(s) Active 05/09/2015 [facility] potassium chloride 8 mEq, PO, Daily, 0 Refill(s) Active 05/09/2015 [facility] tramadol hydrochloride 50 MG Oral Tablet 50 mg = 1 tab, PO, Q4H, 0 Refill(s) Active 05/09/2015 [facility] metoprolol 200 mg oral tablet, extended release 200 mg = 1 tab, PO, Daily, 0 Refill(s) Active 05/09/2015 [facility] amLODIPine 5 mg oral tablet 5 mg = 1 tab, PO, Daily, 0 Refill(s) Active 05/09/2015 [facility] gabapentin 600 MG Oral Tablet 600 mg = 1 tab, PO, TID, 0 Refill(s) Active 05/09/2015 [facility] linaclotide 0.145 MG Oral Capsule [Linzess] 145 microgram = 1 cap, PO, Daily, 30 minutes prior to the first meal of the day, # 30 cap, 0 Refill(s) Active 05/09/2015 [facility] lisinopril 20 mg oral tablet 2 0 mg = 1 tab, PO, Daily, 0 Refill(s) Active 05/09/2015 [facility] Trazodone Hydrochloride 50 MG Oral Tablet 50 mg = 1 tab, PO, TID, 0 Refill(s) Active 05/09/2015 [facility] Fusion Caps Fusion Caps, 1 cap sudeep, PO, Daily, Refill(s) 0 Active 05/09/2015 [facility] Hydrochlorothiazide 25 MG Oral Tablet 25 mg = 1 tab, PO, Daily, 0 Refill(s) Active 05/09/2015 [facility] Rosuvastatin calcium 40 MG Oral Tablet [Crestor] 40 mg = 1 tab, PO, Bedtime, 0 Refill(s) Active 05/09/2015 [facility] Aspirin Low Dose 81 mg oral tablet 0 Refill(s) Active 05/09/2015 [facility] valACYclovir 1 g oral tablet 1 gm = 1 tab, PO, Q8H, 0 Refill(s) Active 05/09/2015 [facility] isosorbide mononitrate 30 mg oral tablet , extended release 30 mg = 1 tab, PO, QAM, 0 Refill(s) Active 05/09/2015 [facility] Nitroglycerin 0.4 MG Sublingual Tablet [Nitrostat] 0.4 mg = 1 tab, SL, Q5Min, PRN Chest Pain, # 100 tab, 0 Refill(s) Active 05/09/2015 [facility] normal saline 0.9% IV 1,000 mL 1,000 mL, Rate: 100 ml/hr, Infuse over: 10 hr, Route: IV, Dosing Weight 90 kg, Total Volume: 1,000, Start date: 05/09/15 7:40:00, Duration: 30 day, Stop date: 06/08/15 7:39:00 Inactive 05/09/2015 [facility] Naproxen Sodium 550 MG Oral Tablet ; Start Date: 08/10/2013; End Date: 11/08/2013 (Active) Active 08/10/2013 [facility] Hydrochlorothiazide 25 MG Oral Tablet (Active) Active [facility] Potassium Chloride ER 8 MEQ Oral Capsule Extended Release (Active) A ctive [facility] AmLODIPine Besylate 5 MG Oral Tablet (Active) Active [facility] Nitroglycerin 0.4 MG SUBL (Ac tive) Active [facility] Clopidogrel Bisulfate 75 MG Oral Tablet (Active) Active [facility] Metoprolol Succinate ER 200 MG Oral Tabl et Extended Release 24 Hour (Active) A ctive [facility] Lisinopril 20 MG Oral Tablet (Active) Active [facility] Crestor 20 MG Oral Tablet (Ac tive) Active [facility] Isosorbide Dinitrate 40 MG TABS (Active) Active [facility] Vitamin D3 400 UNIT Oral Tablet (Active) Active [facility] Aspirin 81 MG Oral Tablet (Ac tive) Active [facility] Allergies, Adverse Reactions, Alerts Substance Category Reaction Severity Reaction type Status Date Reported Comments Source Iodine SOLN drug allergy drug allergy Active [facility] iodine Assertion Drug allergy Active [facility] Immunizations No Data Provided for This Section Results Order Name Results Value Reference Range Date Interpretation Comments Source CHEM PANEL eGFR 60 09/02/2015 Result Comment: The eGFR is calculated using the CKD-EPI formula. In most young, healthy individuals the eGFR will be >90 mL/min/1.73m2. The eGFR declines with age. An eGFR of 60-89 may be normal in some populations, particularly the elderly, for whom the CKD-EPI formula has not been extensively validated. Use of the eGFR is not recommended in the following populations:

Individuals with unstable creatinine concentrations, including patients and those with serious co-morbid conditions.

Patients with extremes in muscle mass or diet.

The data above are obtained from the National Kidney Disease Education Program (NKDEP) which additionally recommends that when the eGFR is used in patients with extremes of body mass index for purposes of drug dosing, the eGFR should be multiplied by the estimated BMI. [facility] CHEM PANEL Creatinine Lvl 1.09 0.50 - 1.40 09/02/2015 [facility] CHEM PANEL Glucose Lvl 135 70 - 99 09/02/2015 [facility] CHEM PANEL BUN 26 7 - 22 09/02/2015 [facility] CHEM PANEL Chloride Lvl 108 95 - 109 09/02/2015 [facility] CHEM PANEL Calcium Lvl 8.6 8.5 - 10.5 09/02/2015 [facility] CHEM PANEL CO2 29 24 - 32 09/02/2015 [facility] CHEM PANEL Potassium Lvl 4.2 3.5 - 5.1 09/02/2015 [facility] CHEM PANEL Sodium Lvl 143 135 - 145 09/02/2015 [facility] CHEM PANEL AGAP 10.2 10.0 - 20.0 09/02/2015 [facility] CHEM PANEL Phosphorus 2.6 2.5 - 4.5 09/02/2015 [facility] CHEM PANEL Magnesium Lvl 2.1 1.8 - 2.4 09/02/2015 [facility] HEMATOLOGY Hgb 9.3 12.0 - 16.0 09/02/2015 [facility] HEMATOLOGY Hct 27.2 36.0 - 48.0 09/02/2015 [facility] HEMATOLOGY RBC 3.27 4.20 - 5.40 09/02/2015 [facility] HEMATOLOGY MCH 28.5 27.0 - 31.0 09/02/2015 [facility] HEMATOLOGY MCV 83.1 80.0 - 98.0 09/02/2015 [facility] HEMATOLOGY MPV 10.2 7.4 - 10.4 09/02/2015 [facility] HEMATOLOGY MCHC 34.3 32.0 - 36.0 09/02/2015 [facility] HEMATOLOGY Platelet 141 133 - 450 09/02/2015 [facility] HEMATOLOGY RDW 15.3 11.5 - 14.5 09/02/2015 [facility] HEMATOLOGY WBC 7.8 3.7 - 10.4 09/02/2015 [facility] HEMATOLOGY INR 1.01 0.85 - 1.17 09/02/2015 [facility] HEMATOLOGY PTT 35.6 22.9 - 35.8 09/02/2015 [facility] HEMATOLOGY PT 13.6 12.0 - 14.7 09/02/2015 [facility] HEMATOLOGY Basophils # 0.1 0.0 - 0.2 09/02/2015 [facility] HEMATOLOGY Segs-Bands # 5.6 1.5 - 8.1 09/02/2015 [facility] HEMATOLOGY Basophils 0.8 0.0 - 1.0 09/02/2015 [facility] HEMATOLOGY Monocytes # 0.6 0.0 - 0.8 09/02/2015 [facility] HEMATOLOGY Lymphocytes # 1.5 1.0 - 5.5 09/02/2015 [facility] HEMATOLOGY Eosinophils 0.4 0.0 - 4.0 09/02/2015 [facility] HEMATOLOGY Monocytes 7.5 2.0 - 12.0 09/02/2015 [facility] HEMATOLOGY Lymphocytes 19.3 20.0 - 40.0 09/02/2015 [facility] HEMATOLOGY Segs 72.0 45.0 - 75.0 09/02/2015 [facility] PARATHYROID PROFILE Ca Norm WB 1.28 1.05 - 1.25 09/02/2015 [facility] PARATHYROID PROFILE Ca Ion WB 1.25 1.05 - 1.25 09/02/2015 [facility] HEMATOLOGY POC Activated Clotting Ti me 153 09/01/2015 [facility] HEMATOLOGY POC Activated Clotting Ti me 162 09/01/2015 [facility] HEMATOLOGY POC Activated Clotting Ti me 182 09/01/2015 [facility] CHEM PANEL eGFR 62 09/01/2015 Result Comment: The eGFR is calculated using the CKD-EPI formula. In most young, healthy individuals the eGFR will be >90 mL/min/1.73m2. The eGFR declines with age. An eGFR of 60-89 may be normal in some populations, particularly the elderly, for whom the CKD-EPI formula has not been extensively validated. Use of the eGFR is not recommended in the following populations:

Individuals with unstable creatinine concentrations, including patients and those with serious co-morbid conditions.

Patients with extremes in muscle mass or diet.

The data above are obtained from the National Kidney Disease Education Program (NKDEP) which additionally recommends that when the eGFR is used in patients with extremes of body mass index for purposes of drug dosing, the eGFR should be multiplied by the estimated BMI. [facility] CHEM PANEL Creatinine Lvl 1.06 0.50 - 1.40 09/01/2015 [facility] CHEM PANEL Sodium Lvl 140 135 - 145 09/01/2015 [facility] CHEM PANEL Glucose Lvl 183 70 - 99 09/01/2015 [facility] CHEM PANEL BUN 22 7 - 22 09/01/2015 [facility] CHEM PANEL Calcium Lvl 9.4 8.5 - 10.5 09/01/2015 [facility] CHEM PANEL AGAP 13.2 10.0 - 20.0 09/01/2015 [facility] CHEM PANEL Chloride Lvl 105 95 - 109 09/01/2015 [facility] CHEM PANEL CO2 26 24 - 32 09/01/2015 [facility] CHEM PANEL Potassium Lvl 4.2 3.5 - 5.1 09/01/2015 [facility] CHEM PANEL Phosphorus 3.2 2.5 - 4.5 09/01/2015 [facility] CHEM PANEL Magnesium Lvl 2.1 1.8 - 2.4 09/01/2015 [facility] HEMATOLOGY PT 16.5 12.0 - 14.7 09/01/2015 [facility] HEMATOLOGY INR 1.30 0.85 - 1.17 09/01/2015 [facility] HEMATOLOGY MPV 10.4 7.4 - 10.4 09/01/2015 [facility] HEMATOLOGY RDW 15.3 11.5 - 14.5 09/01/2015 [facility] HEMATOLOGY Platelet 192 133 - 450 09/01/2015 [facility] HEMATOLOGY MCV 84.2 80.0 - 98.0 09/01/2015 [facility] HEMATOLOGY MCHC 31.9 32.0 - 36.0 09/01/2015 [facility] HEMATOLOGY MCH 26.9 27.0 - 31.0 09/01/2015 [facility] HEMATOLOGY RBC 4.03 4.20 - 5.40 09/01/2015 [facility] HEMATOLOGY Hgb 10.8 12.0 - 16.0 09/01/2015 [facility] HEMATOLOGY Hct 33.9 36.0 - 48.0 09/01/2015 [facility] HEMATOLOGY WBC 7.3 3.7 - 10.4 09/01/2015 [facility] HEMATOLOGY Monocytes # 0.1 0.0 - 0.8 09/01/2015 [facility] HEMATOLOGY Lymphocytes # 0.9 1.0 - 5.5 09/01/2015 [facility] HEMATOLOGY Basophils 0.3 0.0 - 1.0 09/01/2015 [facility] HEMATOLOGY Segs-Bands # 6.3 1.5 - 8.1 09/01/2015 [facility] HEMATOLOGY Segs 87.3 45.0 - 75.0 09/01/2015 [facility] HEMATOLOGY Lymphocytes 11.7 20.0 - 40.0 09/01/2015 [facility] HEMATOLOGY Monocytes 0.7 2.0 - 12.0 09/01/2015 [facility] LIPIDS Trig 23 <=149 mg/dL 09/01/2015 [facility] LIPIDS Chol 178 <=199 mg/dL 09/01/2015 [facility] LIPIDS CHD Risk 2.74 3.90 - 5.80 09/01/2015 [facility] LIPIDS HDL 65 >=61 mg/dL 09/01/2015 [facility] LIPIDS VLDL 5 09/01/2015 [facility] LIPIDS LDL (Calculated) 108 <=99 mg/dL 09/01/2015 [facility] PARATHYROID PROFILE Ca Ion WB 1.23 1.05 - 1.25 09/01/2015 [facility] PARATHYROID PROFILE Ca Norm WB 1.24 1.05 - 1.25 09/01/2015 [facility] SPECIAL CHEMISTRY Hgb A1C 6.1 <=5.6 % 09/01/2015 [facility] BLOOD BANK RESULTS Antibody Scrn Negative (08/31/15 11:27 AM) 08/31/2015 [facility] BLOOD BANK RESULTS ABO/Rh O POS 08/31/2015 [facility] CHEM PANEL eGFR 46 08/31/2015 Result Comment: The eGFR is calculated using the CKD-EPI formula. In most young, healthy individuals the eGFR will be >90 mL/min/1.73m2. The eGFR declines with age. An eGFR of 60-89 may be normal in some populations, particularly the elderly, for whom the CKD-EPI formula has not been extensively validated. Use of the eGFR is not recommended in the following populations:

Individuals with unstable creatinine concentrations, including patients and those with serious co-morbid conditions.

Patients with extremes in muscle mass or diet.

The data above are obtained from the National Kidney Disease Education Program (NKDEP) which additionally recommends that when the eGFR is used in patients with extremes of body mass index for purposes of drug dosing, the eGFR should be multiplied by the estimated BMI. [facility] CHEM PANEL Calcium Lvl 9.8 8.5 - 10.5 08/31/2015 [facility] CHEM PANEL CO2 30 24 - 32 08/31/2015 [facility] CHEM PANEL Chloride Lvl 104 95 - 109 08/31/2015 [facility] CHEM PANEL Creatinine Lvl 1.35 0.50 - 1.40 08/31/2015 [facility] CHEM PANEL Sodium Lvl 143 135 - 145 08/31/2015 [facility] CHEM PANEL BUN 35 7 - 22 08/31/2015 [facility] CHEM PANEL Potassium Lvl 4.1 3.5 - 5.1 08/31/2015 [facility] CHEM PANEL Glucose Lvl 103 70 - 99 08/31/2015 [facility] CHEM PANEL AGAP 13.1 10.0 - 20.0 08/31/2015 [facility] CHEM PANEL Magnesium Lvl 2.1 1.8 - 2.4 08/31/2015 [facility] HEMATOLOGY INR 0.97 0.85 - 1.17 08/31/2015 [facility] HEMATOLOGY PT 13.2 12.0 - 14.7 08/31/2015 [facility] HEMATOLOGY PTT 38.1 22.9 - 35.8 08/31/2015 [facility] HEMATOLOGY Platelet 170 133 - 450 08/31/2015 [facility] HEMATOLOGY RDW 15.3 11.5 - 14.5 08/31/2015 [facility] HEMATOLOGY MPV 10.5 7.4 - 10.4 08/31/2015 [facility] HEMATOLOGY WBC 4.9 3.7 - 10.4 08/31/2015 [facility] HEMATOLOGY Hgb 10.6 12.0 - 16.0 08/31/2015 [facility] HEMATOLOGY RBC 3.90 4.20 - 5.40 08/31/2015 [facility] HEMATOLOGY MCH 27.2 27.0 - 31.0 08/31/2015 [facility] HEMATOLOGY MCV 85.2 80.0 - 98.0 08/31/2015 [facility] HEMATOLOGY Hct 33.2 36.0 - 48.0 08/31/2015 [facility] HEMATOLOGY MCHC 32.0 32.0 - 36.0 08/31/2015 [facility] HEMATOLOGY Eosinophils # 0.2 0.0 - 0.5 08/31/2015 [facility] HEMATOLOGY Lymphocytes # 1.4 1.0 - 5.5 08/31/2015 [facility] HEMATOLOGY Monocytes # 0.5 0.0 - 0.8 08/31/2015 [facility] HEMATOLOGY Segs-Bands # 2.8 1.5 - 8.1 08/31/2015 [facility] HEMATOLOGY Monocytes 9.3 2.0 - 12.0 08/31/2015 [facility] HEMATOLOGY Eosinophils 3.9 0.0 - 4.0 08/31/2015 [facility] HEMATOLOGY Lymphocytes 28.9 20.0 - 40.0 08/31/2015 [facility] HEMATOLOGY Segs 57.3 45.0 - 75.0 08/31/2015 [facility] HEMATOLOGY Basophils 0.6 0.0 - 1.0 08/31/2015 [facility] ELECTROLYTES AGAP 13.2 10.0 - 20.0 05/09/2015 [facility] ELECTROLYTES eGFR 48 05/09/2015 Result Comment: The eGFR is calculated using the CKD-EPI formula. In most young, healthy individuals the eGFR will be >90 mL/min/1.73m2. The eGFR declines with age. An eGFR of 60-89 may be normal in some populations, particularly the elderly, for whom the CKD-EPI formula has not been extensively validated. Use of the eGFR is not recommended in the following populations:

Individuals with unstable creatinine concentrations, including patients and those with serious co-morbid conditions.

Patients with extremes in muscle mass or diet.

The data above are obtained from the National Kidney Disease Education Program (NKDEP) which additionally recommends that when the eGFR is used in patients with extremes of body mass index for purposes of drug dosing, the eGFR should be multiplied by the estimated BMI. [facility] ELECTROLYTES Creatinine Lvl 1.3 0 0.50 - 1.40 05/09/2015 [facility] ELECTROLYTES Calcium Lvl 9.6 8.5 - 10.5 05/09/2015 [facility] ELECTROLYTES CO2 29 24 - 32 05/09/2015 [facility] ELECTROLYTES Glucose Lvl 114 70 - 99 05/09/2015 [facility] ELECTROLYTES BUN 30 7 - 22 05/09/2015 [facility] ELECTROLYTES Potassium Lvl 3.2 3.5 - 5.1 05/09/2015 [facility] ELECTROLYTES Sodium Lvl 141 135 - 145 05/09/2015 [facility] ELECTROLYTES Chloride Lvl 102 95 - 109 05/09/2015 [facility] ENDOCRINOLOGY S Preg Ne gative *NA* (05/09/15 8:09 AM) Negative 05/09/2015 [facility] HEMATOLOGY MPV 10.2 7.4 - 10.4 05/09/2015 [facility] HEMATOLOGY Platelet 195 133 - 450 05/09/2015 [facility] HEMATOLOGY RDW 15.7 11.5 - 14.5 05/09/2015 [facility] HEMATOLOGY MCHC 32.2 32.0 - 36.0 05/09/2015 [facility] HEMATOLOGY MCH 27.3 27.0 - 31.0 05/09/2015 [facility] HEMATOLOGY RBC 4.25 4.20 - 5.40 05/09/2015 [facility] HEMATOLOGY WBC 5.4 3.7 - 10.4 05/09/2015 [facility] HEMATOLOGY MCV 84.5 80.0 - 98.0 05/09/2015 [facility] HEMATOLOGY Hct 36.0 36.0 - 48.0 05/09/2015 [facility] HEMATOLOGY Hgb 11.6 12.0 - 16.0 05/09/2015 [facility] HEMATOLOGY INR 0.93 0.85 - 1.17 05/09/2015 [facility] HEMATOLOGY PT 12.8 12.0 - 14.7 05/09/2015 [facility] HEMATOLOGY PTT 42.7 22.9 - 35.8 05/09/2015 [facility] HEMATOLOGY Eosinophils # 0.2 0.0 - 0.5 05/09/2015 [facility] HEMATOLOGY Monocytes # 0.5 0.0 - 0.8 05/09/2015 [facility] HEMATOLOGY Lymphocytes # 1.7 1.0 - 5.5 05/09/2015 [facility] HEMATOLOGY Eosinophils 3.2 0.0 - 4.0 05/09/2015 [facility] HEMATOLOGY Basophils 0.9 0.0 - 1.0 05/09/2015 [facility] HEMATOLOGY Segs-Bands # 3.0 1.5 - 8.1 05/09/2015 [facility] HEMATOLOGY Monocytes 9.6 2.0 - 12.0 05/09/2015 [facility] HEMATOLOGY Lymphocytes 31.4 20.0 - 40.0 05/09/2015 [facility] HEMATOLOGY Segs 54.9 45.0 - 75.0 05/09/2015 [facility] Pathology Reports No Data Provided for This Section Diagnostic Reports Report Value Date Source Pelvis w Pelvis Transvaginal US EXAM: US PELVIS TRANSABDOMINAL EXAM: US PELVIS TRANSVAGINAL DATE: 12/17/2018 9:21 CDT INDICATION: - N95.0 Postmenopausal bleeding ADDITIONAL INFORMATION: 73-year-old woman postmenopausal. Patient had some bleeding one year ago per technologist notes. COMPARISON: Pelvic ultrasound 03/19/2016 TECHNIQUE: Multiplanar grayscale and color Doppler ultrasound of the pelvis were obtained transabdominally through a distended urinary bladder followed by transvaginal examination postvoid. FINDINGS: Uterus: Orientation: Anteflexed. Size: 6.2 x 2.8 x 4.1 cm Echogenicity: Heterogeneous. Masses: Anterior mid uterine body intramural fibroid measures 1.1 x 0.8 x 1 cm. Cervix: Post. Nabothian cysts. Endometrium: 0.4 cm. No focal lesions. Small amount of fluid within the endometrial cavity. Right ovary: Size: 2.3 x 1.2 x 2.3 cm, volume of 3.2 mL Cysts: None. Masses: None. Left ovary: Size: 1.7 x 0.8 x 0.7 cm, volume of 0.5 mL Cysts: None. Masses: None. Adnexa: No large lesions. Free fluid: None. Other findings: None. IMPRESSION: 1. Postmenopausal uterus without focal endometrial lesions. Endometrial stripe within normal limits for a postmenopausal woman. Small amount nonspecific fluid. 2. Postmenopausal ovaries. No adnexal l esions. 3. Fibroid uterus. 12/17/2018 [facility] Knee 3 Views Bilateral DX EXAM : XR BILATERAL KNEE 3 VIEWS DATE: 01/06/2018 11:56 AM CDT INDICATION: - M17.10 Unilateral primary osteoarthritis, unspecified knee COMPARISON: None. TECHNIQUE: Standing AP, sunrise and lateral radiographs of both knees FINDINGS: Right knee: No acute fracture or malalignment is identified. Joint spaces are preserved. Mild superior patellar enthesopathy. No knee joint effusion is present. No soft tissue abnormality is identified. Left knee: No acute fracture or malalignment is identified. There is narrowing of the medial compartment with associated marginal osteophyte formation. Mild superior patellar enthesopathy. No knee joint effusion is present. No soft tissue abnormality is identified. IMPRESSION: 1. No acute bony injury. 2. Moderate left medial compartment ost eoarthritis. 3. No significant degenerative change o f the right knee. 01/06/2018 [facility] Complete US Ex am: Bilateral renal ultrasound. Reason for Exam: Flank pain, chronic - R10.9 Unspecified abdominal pain Comparison Exam: None Discussion: Multiplanar grayscale and color Doppler ultrasound of the kidneys, aorta, IVC, and urinary bladder. Right kidney: Size: 9.7 x 4.4 x 4.7 cm. Cortical thickness measures 1.0 cm. Hydronephrosis: None. Echogenicity: Unremarkable Calculi/Cysts/Masses: 9 mm hyperechoic echogenicity seen within the right kidney likely representing a nonobstructing calcified stone. Left kidney: Size: 9.8 x 5.0 x 4.7 cm. Cortical thickness measures 1.2 cm. Hydronephrosis: None. Echogenicity: Unremarkable Calculi/Cysts/Masses: None. Abdominal aorta/Iliac arteries: Visualized portions are unremarkable. Inferior vena cava: Visualized portions are unremarkable Bladder: Unremarkable. IMPRESSION: 1. Echogenicity of the kidneys is unrem arkable. 9 mm hyperechoic echogenicity seen within the right kidney likely representing a nonobstructing calcified stone. 12/22/2017 [facility] Pelvis w Pelvis Transvaginal US Exam: Pelvic ultrasound. Reason for Exam: R10.2 Pelvic and perineal pain Comparison Exam: None Discussion: Multiple axial and sagittal images of the pelvis were obtained transabdominally and transvaginally. The uterus measures 6.6 cm in length. 2 hypoechoic regions are seen within the uterus most compatible with intramural fibroids. They measure 2.3 cm and 1.1 cm. The endometrial stripe measures 0.3 cm, and is within normal limits. Right and left ovaries cannot be definitively seen. However, there are no abnormal adnexal masses identified. No free fluid seen within the pelvic cul-de-sac. The bladder is unremarkable in appearance. Impression: 1. 2 hypoechoic regions are seen within the uterus most compatible with intramural fibroids. They measure 2.3 cm and 1.1 cm. 03/19/2016 [facility] [place] Chest 1view DX EXAM: XR CHEST 1 VIEW DATE: 09/01/2015 3:11 AM CDT INDICATION: Crackles COMPARISON: No images to compare TECHNIQUE: AP chest IMPRESSION: Borderline cardiomegaly. Calcified aortic arch. Left retrocardiac subsegmental atelectasis. Please note the patient is rotated. Minimal prominence of the bilateral perihilar interstitial markings could suggest early increased pulmonary venous pressures. No pleural effusion or pneumothorax. Stable skeletal structures. 09/01/2015 [facility] Consultation Notes No Data Provided for This Section Discharge Summaries No Data Provided for This Section History and Physicals No Data Provided for This Section Vital Signs Vital Sign Value Date Comments Source Systolic (mm Hg) 139 09/02/2015 [facility] Diastolic (mm Hg) 79 09/02/2015 [facility] Systolic (mm Hg) 100 09/02/2015 [facility] Diastolic (mm Hg) 51 09/02/2015 [facility] Systolic (mm Hg) 131 09/02/2015 [facility] Diastolic (mm Hg) 82 09/02/2015 [facility] Temperature Oral (F) 99.1 F 09/02/2015 [facility] Temperature Oral (F) 98.2 F 09/02/2015 [facility] Temperature Oral (F) 98.5 F 09/02/2015 [facility] Height 157.48 cm 09/01/2015 [facility] BMI Calculated 23.95 09/01/2015 [facility] Weight 59.4 09/01/2015 [facility] Weight 90.455 08/31/2015 [facility] BMI Calculated 36.47 08/31/2015 [facility] Height 157.48 cm 08/31/2015 [facility] Heart Rate 64 05/09/2015 [facility] Systolic (mm Hg) 154 05/09/2015 [facility] Diastolic (mm Hg) 71 05/09/2015 [facility] Respitory Rate 18 05/09/2015 [facility] BMI Calculated 36.29 05/09/2015 [facility] Weight 90 0 05/09/2015 [facility] Height 157.48 cm 05/09/2015 [facility] Encounters Location Location Details Encounter Type Encounter Number Reason For Visit Attending Provider ADM Date DC Date Status Source AUDIT [id number] 08/10/2013 08/10/2013 [facility] A[facility] [id number] 08/12/2013 08/12/2013 [facility] AUDIT [id number] 08/15/2013 08/15/2013 [facility] AUDIT [id number] 08/17/2013 08/17/2013 [facility] AUDIT [id number] 08/25/2013 08/25/2013 [facility] AUDIT [id number] 09/08/2013 09/08/2013 [facility] [place] OP Therapy Patients [id number] Jv Cohen 11/28/2013 12/28/2013 [facility] [place] [facility] [place] OP Therapy Patients [id number] Jv Cohen 01/13/2014 02/12/2014 [facility] Bedded Outpatient [id number] Ibanmishel Soni 05/09/2015 05/09/2015 [facility] Inpatient [id number] Nelsy Salas 09/01/2015 09/02/2015 [facility] [place] [facility] [id number] Mikel Amaya 03/19/2016 03/20/2016 [facility] [place] [facility]patient Imaging - [place] [facility] [id number] Josseline Velasco 12/22/2017 12/23/2017 [facility] [place] [facility] Outpatient Imaging - [place] [facility] [id number] Josseline Krista 01/06/2018 01/07/2018 [facility] [place] [facility] Outpatient Imaging - [place] [facility] [id number] Roxann Vanita 12/17/2018 12/18/2018 [facility] [place] Procedures Procedure Code Date Perfomer Comments Source Cardiac catheterization, left heart [id number] 05/09/2015 [facility], [facility] [place] [facility] [place] Mastectomy [id number] [facility], [facility] [place], [facility] [place] Placement of stent [id number] [facility], [facility] [place], [facility] [place] Assessment and Plan Assessment and Plan Date Source Extracted from:Title: Discharge Summary Author: Walt Ortiz MD Date: 09/02/15 Discharge Summary CCU Team Name- Mik Norton Date of - 1945 Date of Admission: 08/31/2015 Attending: Dr. 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 Pt reported chronic chest pain aggravated by exertion that she had been managing with SL nitro at home. Pt follows with Dr. Soni outpatient. She underwent cath in May [address] Soni that showed 100% RCA stent occlusion. She underwent repeat [facility] with new stent placement for RCA stent 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 on 08/30. She tolerated the procedure well. Post op TTE showed an EF of 60%, diastolic dysfunction, concentric LVH, mild AR. Pt's BP medications were started in a stepwise fashion. Today, she is being discharged home in stable condition. She will take Lisinopril 2.5mg daily and Metoprolol tartrate 25mg BID instead of her home BP medication until outpatient review. Pt was seen by PT today who identified no DME needs. Pt will undergo cardiac rehab outpatient. She will follow up with her PCP in [address] Soni in Cardiology clinic in 2 weeks post discharge. Consultants: None Procedures: LHC, TTE Discharge to: Home Discharge condition: Stable Discharge Medications: see medication reconciliation form Discharge Diet : Heart Healthy Follow up: 1. PCP in [address] Soni (Cardiology Clinic) in 2 weeks Activity: as tolerated Discharge Instructions: Please take all your medications as directed . ATTENDING ADDENDUM I have seen and examined the patient. Furthermore, I have reviewed the resident's/fellow's note dated today, and I agree with the assessment and plan. I have personally reviewed the laboratory results, radiology results, and tracings. Dr. Taurus Arita MD #[id number] Extracted from:Title: CCU Progress Note Author: Walt Ortiz MD Date: 09/02/15 Patient: MIK NORTON Age: 70 years Sex: Female : 1945 Associated Diagnoses: None Author: Walt Ortiz MD Subjective No acute events overnight. No c/o SOB or CP today. Carotid sheath removed yesterday. Mena removed today. BP 98/47 at 5am. Review of Systems Constitutional: Negative. Eye: Negative. Respiratory: Negative. Cardiovascular: Negative. Breast Genitourinary: Negative. Objective Meds Scheduled Meds (6):aspirin (aspirin 81 mg tablet, chewable), atorvastatin (Lipitor), clopidogrel, heparin (heparin 5000 units/mL injectable solution), metoprolol (metoprolol tartrate), trazodone (trazodone 50 mg oral tablet) Unscheduled Meds: None PRN Meds (2):nitroglycerin (nitroglycerin SL Tab), tramadol (tramadol 50 mg oral tablet) One Time Meds: None Continuous Infusions: None I&O Input/Output Record In Out Bal 08/31 24hr Tot [phone] -[phone] 08/30 24hr Tot 1080 850 230 VS/Measurements Measurements from flowsheet : Measurements 09/01/2015 03:36 Heparin Dosing Weight (kg) 59.40 09/01/2015 03:35 Height 157.48 cm Height Collection Method Stated Weight 59.4 kg Dosing Weight Difference Percent -34.332 % Dosing Wt Entered is < 10% of Previous Wt Confirmed Dosing Weight Collection Method Measured Body Surface Area 1.612 m2 Body Mass Index 23.95 m2 08/31/2015 11:19 Heparin Dosing Weight (kg) 66.24 08/31/2015 11:19 Height 157.48 cm Height Collection Method Stated Weight 90.455 kg Dosing Weight Difference Percent 0.506 % Dosing Weight Collection Method Measured Body Surface Area 1.9892 m2 Body Mass Index 36.47 m2 , Vital Signs (last 24 hrs) Last Charted Temp Oral 98.2 DegF (SEPTEMBER 01 00:30) Heart Rate Apical 72 bpm (SEPTEMBER 01 07:) SBP 129 mmHg (SEPTEMBER 01:00) DBP L 58mmHg (SEPTEMBER 01:00) SpO2 96 % (SEPTEMBER 01:00) General: no acute distress. obese. HEENT: NCAT, PERRLA, MMM Neck: supple, no JVD Chest: CTAB Cardiac: RRR, normal S1 and S2, no m/r/g Abd: Soft, NDNT, +BS x4, no organomegaly. Extremities: no c/c/e. 2+ pulses bilaterally. Cap refill <2s. Rt groin LHC access site c/d/i Musculoskeletal: normal ROM Neuro: alert. CN grossly intact Skin: no rashes Review / Management Results review: Labs (Last four charted values) WBC 7.8 (SEPTEMBER 01) 7.3 (AUG 31) 4.9 (AUG 30) Hgb L 9.3 (SEPTEMBER 01) L 10.8 (AUG 31) L 10.6 (AUG 30) Hct L 27.2 (SEPTEMBER 01) L 33.9 (AUG 31) L 33.2 (AUG 30) Plt 141 (SEPTEMBER 01) 192 (AUG 31) 170 (AUG 30) Na 143 (SEPTEMBER 01) 140 (AUG 31) 143 (AUG 30) K 4.2 (SEPTEMBER 01) 4.2 (AUG 31) 4.1 (AUG 30) CO2 29 (SEPTEMBER 01) 26 (AUG 31) 30 (AUG 30) Cl 108 (SEPTEMBER 01) 105 (AUG 31) 104 (AUG 30) Cr 1.09 (SEPTEMBER 01) 1.06 (AUG 31) 1.35 (AUG 30) BUN H 26 (SEPTEMBER 01) 22 (AUG 31) H 35 (AUG 30) Glucose Random H 135 (SEPTEMBER 01) H 183 (AUG 31) H 103 (AUG 30) Mg 2.1 (SEPTEMBER 01) 2.1 (AUG 31) 2.1 (AUG 30) Phos 2.6 (SEPTEMBER 01) 3.2 (AUG 31) Ca 8.6 (SEPTEMBER 01) 9.4 (AUG 31) 9.8 (AUG 30) PT 13.6 (SEPTEMBER 01) H 16.5 (AUG 31) 13.2 (AUG 30) INR 1.01 (SEPTEMBER 01) H 1.30 (AUG 31) 0.97 (AUG 30) PTT 35.6 (SEPTEMBER 01) H 38.1 (AUG 30) . Impression and Plan 70 yo F with OA, HLD, HTN, CAD s/p PCI w ith in stent stenosis, moderate Aortic regurgitation (TTE 2011) who presented for elective PCI of 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 of RCA now s/p new stent placement on 08/30 Neuro - alert, follows commands CV # CAD - h/o PCI of RCA with 6 stents at [facility] i n 2007 - s/p restenting of RCA 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 08/30 - on ASA, Statin, Plavix - will hold home Metoprolol ER 200 mg an d 100 mg in PM - Previous nuclear stress test showed mi ld anterior wall ischemia - Tramadol for pain control - TTE 08/31 with LVEF 60%, diastolic dysf unction - on metoprolol tartrate 25mg BID - PT/OT consult - no DME needs # HTN - hold home htn meds - metoprolol tartrate 25mg BID - start lisinopril 2.5mg daily upon disc harge # HLD - Continue crestor Resp - no issues GI # IBS - home linaclotide non formulary - ok to hold for now DVT Ppx: SCDs, heparin sq Diet - heart healthy Dispo - d/c this afternoon Lines, Tubes, and Drains: 08/31/2015 23:30 Peripheral Lines: Antec ubital Left Over the needle catheter CCU/CIMU Daily Patient Safety Checklist Yes No Mechanical Ventilation? _ x 1. Sedation level addressed? _ _ 2. Sedation holiday performed if indicated? _ _ 3. Adequate pain control? _ _ 4. Delirium assessment done and addressed? _ _ 5. Restraints assessed/reordered? _ _ 6. PUD ppx? _ _ Blood Stream Infection Prevention: x 1. Central Line necessity addressed? _ NA _ vasoactive agents, _ TPN, _loss of venous access 2. Central Line duration > 5 days? _ NA CAUTI Prevention: x 1. Mena necessity addressed? _ x _ complete bedrest, _ urinary retention,_ 2. Mena duration > 3 days? _ x mena removed DVT Prevention: x 1. VTE Advisor Completed on admission? x _ 2. DVT ppx? x _ hep sq Nutrition 1. Enteral Feeding within 48h? _ x Blood Glucose Control 1. 60 mg/dl < BG < 200mg/dl? x _ CAD/CHF/PCI Requirements: 1. ASA post WI? x _ 2. ACEi + BB in CHF? x _ 3. Statin in CAD? x _ 4. DAPT post-PCI? _ _ 5. Renal Protection Fluid Protocol Post-PCI? _ _ Discharge Planning 1. PT/OT? x _ 2. Cardiac Rehab? x _ o/p 3. Case Management/Social Work Consult? _ _ Addendum by Taurus Arita MD on 09/02/2015 21:14 ATTENDING ADDENDUM I have seen and examined the patient. Furthermore, I have reviewed the resident's/fellow's note dated today, and I agree with the assessment and plan. I have personally reviewed the laboratory results, radiology results, and tracings. Dr. 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 Will add on in a stepwise fashion tomorrow # HLD - Continue crestor # IBS - Pt is on linaclotide at home, will hol d - Continue to monitor DVT Ppx: SCDs today in post op setting, can start heparin 08/31. 09/02/2015 [facility] Plan of Care Plan of Care Date Source Cardiology Referral 08/10/2013 [facility] Referral 08/10/2013 Routine 09/08/2013 [facility] XRAY Chest 2 views [id number] 08/10/2013 Rout [facility]iology Referral 08/10/2013 [facility] Referral 08/10/2013 Routine 08/25/2013 [facility] XRAY Chest 2 views [id number] 08/10/2013 [facility] Referral 08/10/2013 [facility] Referral 08/10/2013 Routine 08/17/2013 [facility] XRAY Chest 2 views [id number] 08/10/2013 Rout ine[QL] VITAMIN D, 25-HYDROXY, LC/MS/MS 08/10/2013 RoutineCardiology Referral 08/10/2013 [facility] Referral 08/10/2013 Routine 08/15/2013 [facility] XRAY Chest 2 views [id number] 08/10/2013 Rout ine[QLH] CMP W/EGFR 08/10/2013 Routine[QLH] CBC (INCLUDES DIFF/PLT) 08/10/2013 Routine[QLH] TSH, 3RD GENERATION W/REFLEX TO FT4 08/10/2013 Routine[QLH] LIPID PANEL 08/10/2013 Routine[QLH] HEMOGLOBIN A1c 08/10/2013 Routine[QL] VITAMIN D, 25-HYDROXY, LC/MS/MS 08/10/2013 Routine[QLH] MICROALBUMIN, RANDOM URINE (W/CREATININE) 08/10/2013 Routine[QLH] CREATINE KINASE, TOTAL 08/10/2013 [facility]ineCardiology Referral 08/10/2013 [facility] Referral 08/10/2013 Routine 08/12/2013 [facility] XRAY Chest 2 views [id number] 08/10/2013 Rout ine[QLH] CMP W/EGFR 08/10/2013 Routine[QLH] CBC (INCLUDES DIFF/PLT) 08/10/2013 Routine[QLH] TSH, 3RD GENERATION W/REFLEX TO FT4 08/10/2013 Routine[QLH] LIPID PANEL 08/10/2013 Routine[QLH] HEMOGLOBIN A1c 08/10/2013 Routine[QL] VITAMIN D, 25-HYDROXY, LC/MS/MS 08/10/2013 Routine[QLH] MICROALBUMIN, RANDOM URINE (W/CREATININE) 08/10/2013 Routine[QLH] CREATINE KINASE, TOTAL 08/10/2013 RoutineCardiology Referral 08/10/2013 [facility] Referral 08/10/2013 Routine 08/10/2013 [facility] Social History Social History Date Source Social History TypeResponse Alcohol Never Smoking Status Never smoker; Exposure to Tobacco Smoke None; Cigarette Smoking Last 365 Days Unable to obtain; Reg Smoking Cessation Counseling Yes entered on: 08/31/15 05/09/2015 [facility] Social History TypeResponse Alcohol Never Smoking Status Never smoker; Exposure to Tobacco Smoke None; Cigarette Smoking Last 365 Days Unable to obtain; Reg Smoking Cessation Counseling Yes entered on: 08/31/15 05/09/2015 [facility] Social History TypeResponse Alcohol Never Smoking Status Never smoker; Exposure to Tobacco Smoke None; Cigarette Smoking Last 365 Days Unable to obtain; Reg Smoking Cessation Counseling Yes 05/09/2015 [place] Social History TypeResponse Alcohol Never Smoking Status Never smoker; Exposure to Tobacco Smoke None; Cigarette Smoking Last 365 Days Unable to obtain; Reg Smoking Cessation Counseling Yes 05/09/2015 [facility] Marital History - Currently (Active) Never A Smoker (Active) Being A Social Drinker (Active) Occupation: Retired (Active) 09/08/2013 [facility] Family History Value Date S ource Family history of Denial Of Any Signific ant Medical History (Active) 09/08/2013 [facility] Family history of Denial Of Any Signific ant Medical History (Active) 08/25/2013 [facility] Family history of Denial Of Any Signific ant Medical History (Active) 08/17/2013 [facility] Family history of Denial Of Any Signific ant Medical History (Active) 08/15/2013 [facility] Family history of Denial Of Any Signific ant Medical History (Active) 08/12/2013 [facility] Family history of Denial Of Any Signific ant Medical History (Active) 08/10/2013 [facility] Advance Directives Order Name Results Value Date Source Advance Directives Advance Dir ectives No Advance Directives available. 09/08/2013 [facility] Advance Directives Advance Dir ectives No Advance Directives available. 08/25/2013 [facility] Advance Directives Advance Dir ectives No Advance Directives available. 08/17/2013 [facility] Advance Directives Advance Dir ectives No Advance Directives available. 08/15/2013 [facility] Advance Directives Advance Dir ectives No Advance Directives available. 08/12/2013 [facility] Advance Directives Advance Dir ectives No Advance Directives available. 08/10/2013 [facility] Functional Status No Data Provided for This Section
--- OUTSIDE RECORDS SUMMARY | 2020-03-24 09:55 | XMS REPORT | Continuity of Care Document ---
Author Author [facility] t Organization [facility] Address [address] [place] [address] Phone Unavailable Care Team Providers Care Car Sander Name Role Phone Cole FRAUSTO MD PCP BERONICA LEA PA Attphys Unavailable ASHLEY FRAUSTO M.D. Attphys Unavailable IBAN ELDER M.D. Attphys UnavailJennifer Johansen MD Attphys [place], ECHO Attphys Unavailable RAUL HALL D.O. Attphys Unavailable Luiza Hall Attphys [place], NUCLEAR Attphys Unavailable GARO DELUNA M.D. Attphys Unavailable Cole Frausto Attphys Mikel Amaya Attphys Nelsy Salas Attphys Iban Elder Attphys Bisi Cohen Attphys Nelsy Salas Admphys Payers Payer Name Policy Type Policy Number Effective Date Expiration Date Karyna rios [facility] Medicare Complete [id number] I [facility] Problems Condition Name Condition Details Condition Category Status Onset Date Resolution Date Last Treatment Date Treating Clinician Comments Source CCL/PCI STENT/DX: ATHEROSCLEROSIS OF COR CCL/PCI STENT/DX: ATHEROSCLEROSIS OF COR Active 07/25/2015 [facility] Diagnosis Active 2015-07-25 00:00:00 2015-08-03 09:26:00 Rossy Will 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 10 Active 04/24/2015 [facility] Active 2015-04-24 00:00:00 2015-05-09 07:20:00 Rossy Will Cath Placement Of Stent 3 Cath Placement Of Stent 3 Problem Active [facility] Prolapse of bladder Prolapse of bladder Problem Active [facility] History of chest pain History of chest pain Problem Resolved [facility] History of colonic polyps History of colonic polyps Problem Resolved [facility] History of History of colonoscopy History of History of colonosc opy Problem Resolved [facility] History of irritable bowel syndrome History of irritable bowel s yndrome Problem Resolved [facility] History of Lower abdominal pain History of Lower abdominal pain Problem Resolved [facility] History of malignant neoplasm of breast History of malignant neoplasm of breast Problem Resolved [facility] History of osteoarthritis History of osteoarthritis Problem Resolved [facility] Abnormal vaginal bleeding Abnormal vaginal bleeding Problem Active [facility] Abnormal glucose Abnormal glucose Problem Active [facility] Fatigue Fatigue Problem Active [facility] Shingles outbreak Shingles outbreak Problem Active [facility] Pneumococcal vaccination declined by patient Pneumococ segundo vaccination declined by patient Problem Active [facility] Advance care planning Advance care planning Problem Active [facility] Chest pain Chest pain [facility] Osteoarthritis of hip Osteoarthritis of hip Problem Active [facility] Irritable bowel Irritable bowel Problem Active [facility] Shortness of breath Shortness of breath Problem Active [facility] GERD without esophagitis GERD without esophagitis Problem Active [facility] Pain pelvic Pain pelvic Problem Active [facility] CAD (coronary artery disease) CAD (coronary artery disease) Problem Active [facility] Flank pain, chronic Flank pain, chronic Problem Active [facility] Grief Grief Problem Active [facility] Ankle edema, bilateral Ankle edema, bilateral Problem Active [facility] Limb pain Limb pain Problem Active [facility] Otitis media, unspecified, left ear Otitis media, unspecified, l eft ear Problem Active [facility] Pre-syncope Pre-syncope Problem Active [facility] Breast cancer screening Breast cancer screening Problem Active [facility] Postmenopausal state Postmenopausal state Problem Active [facility] Hot flash, menopausal Hot flash, menopausal Problem Active [facility] Urinary incontinence Urinary incontinence Problem Active [facility] Generalized anxiety disorder Generalized anxiety disorder Problem Active [facility] Need for hepatitis C screening test Need for hepatitis C screeni ng test Problem Active [facility] Urinary symptom or sign Urinary symptom or sign Problem Active [facility] Post-menopausal bleeding Post-menopausal bleeding Problem Active [facility] Frequency of urination Frequency of urination Problem Active [facility] Follow up Follow up Problem Active [facility] Urgency of urination Urgency of urination Problem Active [facility] Urgency incontinence Urgency incontinence Problem Active [facility] Vaginal atrophy Vaginal atrophy Problem Active [facility] Nocturia Nocturia Problem Active [facility] Acquired nasolacrimal duct obstruction, right Acquired nasolacrimal duct obstruction, right Problem [facility] Insomnia Insomnia Problem Active [facility] Arthritis of knee Arthritis of knee Problem Active [facility] Mild AI (aortic insufficiency) Mild AI (aortic insufficiency) Problem Active [facility] HTN (hypertension) HTN (hypertension) Problem Active [facility] Hyperlipidemia Hyperlipidemia Problem Active [facility] Medicare annual wellness visit, subsequent Medicare an nual wellness visit, subsequent Problem Active [facility] Estrogen deficiency Estrogen deficiency Problem Active [facility] Depression screen Depression screen Problem Active [facility] Encounter for mini-mental status examination Encounter for mini-mental status examination Problem Active [facility] At moderate risk for fall At moderate risk for fall Problem Active [facility] Abnormal kidney function Abnormal kidney function Problem Active [facility] Anemia Anemia Problem Active [facility] Colon cancer screening Colon cancer screening Problem Active [facility] Weight loss Weight loss Problem Active [facility] Malignant tumor of breast (disorder) Malignant tumor of breast (disorder) Resolved Problem 12/19/2018 [facility], OPHELIA Bella, [facility] [place] Problem Resolved 2018-12-19 23:23:2 5 [facility] Coronary arteriosclerosis (disorder) Coronary arteriosclerosis (disorder) Resolved Problem 12/19/2018 [facility], OPHELIA Bella, [facility] [place] Problem Resolved 2018-12-19 23 :23:25 [facility] Hyperlipidemia (disorder) Hype rlipidemia (disorder) Resolved Problem 12/19/2018 [facility], OPHELIA [facility], [facility] [place] Problem Resolved 2018-12-19 23:23:25 [facility] Insomnia (disorder) Inso mnia (disorder) Resolved Problem 12/19/2018 [facility], OPHELIA [facility]ins,[facility], [facility] [place] Problem Resolved 2018-12-19 23:23:25 [facility] orial Suman Irritable colon (disorder) Irr itable colon (disorder) Resolved Problem 12/19/2018 [facility], OPHELIA [place]ins,[facility], [facility] [place] Problem Resolved 2018-12-19 23:23:25 [facility] Herpes zoster (disorder) Herp es zoster (disorder) Resolved Problem 12/19/2018 [facility], OPHELIA Martins,[facility], [facility] [place] Problem Resolved 2018-12-19 23:23:25 [facility] [place] Dyspnea (finding) Dysp lianet (finding) Resolved Problem 12/19/2018 [facility], OPHELIA Martins,[facility], [facility] [place] Problem Resolved 2018-12-19 23:23:25 [facility] orial Suman Hyperlipidemia Hype rlipidemia Active 09/08/2013 [facility] Problem Active 2013-09-08 22:00:45 [facility] Hypertension Hype rtension Active 09/08/2013 [facility] Problem Active 2013-09-08 22:00:45 Jeremiangel Will Shortness Of Breath Shor tness Of Breath Active 09/08/2013 [facility] Problem Active 2013-09-08 22:00:45 [facility] Chest Pain Ches t Pain Active 09/08/2013 [facility] Problem Active 2013-09-08 22:00:45 [facility] Coronary Artery Disease Kendall nary Artery Disease Active 09/08/2013 [facility] Problem Active 2013-09-08 22:00: 45 [facility] Osteoarthritis Of The Hip Oste oarthritis Of The Hip Active 09/08/2013 [facility] Problem Active 2013-09-08 22:00: 45 [facility] Cath Placement Of Stent 3 Cath Placement Of Stent 3 Active 09/08/2013 [facility] Problem Active 2013-09-08 22:00: 45 [facility] Prediabetes Pred iabetes Active 09/08/2013 [facility] Problem Active 2013-09-08 22:00:45 [facility] RT SHOULDER RT S HOULDER Active [facility] Active 2014-08-01 07:47:00 [facility] ATHSCL HEART DISEASE OF [place] CORONARY ATHSCL HEART DISEASE OF [place] CORONARY Active [facility] Active 2015-05-09 07:20:00 [facility] ENCNTR FOR OBS FOR OTH SUSPECTED DISEASE ENCNTR FOR OBS FOR OTH SUSPECTED DISEASE Active [facility] Diagnosis Active 2015-09-12 21:00:00 [facility] Discharge Diagnosis: CAD S/P percutaneous coronary ang ioplasty Discharge Diagnosis: CAD S/P percutaneous coronary angioplasty 09/02/2015 09/05/2015 [facility] Problem 2015-09-02 05 :00:00 2015-09-05 00:04:34 2015-09-05 00:04:34 [facility] sifuentes Allergies, Adverse Reactions, Alerts Allergy Name Allergy Type Status Severity Reaction(s) Onset Date Inacti ve Date Treating Clinician Comments Source Iodine SOLN Allergy to drug (finding) Active [facility] House Dust Allergy to substance (finding) Inactive [facility] Iodine SOLN Iodine SOLN Active [facility] iodine iodine [facility] Family Member Diagnosis Comments Start Date Stop Date Source Unknown Family Member Family history of Denial Of Any Significant Medical History Family History [facility] Unknown Family Member Family History 2013-08-10 22:45:52 2 22:45:52 [facility] Suman Mother Family history of Denial Of Any Significant Medical Histor y [facility] Father Family history of Denial Of Any Significant Medical Histor y [facility] Sister Family history of hypertension [facility] Brother Family history of myocardial infarction [facility] Social History Social Habit Start Date Stop Date Quantity Comments Source Social History 2013-09-08 22:00:45 2013-09-08 22:00:45 Rossy Will Smoking Status Start Date Stop Date Source Never smoked tobacco (finding) [facility] Ex-smoker (finding) [facility] Medications Ordered Medication Name Filled Medication Name Start Date Stop Da te Current Medication? Ordering Clinician Indication Dosage Frequency Signature (SIG) Comments Components Source Plenvu 140 GM Oral Solution Reconstituted Plenvu 140 G M Oral Solution Reconstituted 2020-03-22 00:00:00 Yes BERONICA LANDIN Hai flavor at 5:00pm Fruit Punch flavor 10:00pm [facility] hydrALAZINE HCl - 100 MG Oral Tablet hydrALAZINE HCl - 100 M G Oral Tablet 2019-03-08 00:00:00 Yes IBAN ELDER M.D. TAKE 1 TABLET BY MOUTH THREE TIMES A DAY [facility] cloNIDine HCl - 0.1 MG Oral Tablet cloNIDine HCl - 0.1 MG Or al Tablet 2019-03-08 00:00:00 Yes IBAN ELDER M.D. 1 table t if SBP>170 [facility] Aspir-Low 81 MG TBEC Aspir-Low 81 MG TBEC 2018-06-18 00:00:00 Yes IBAN ELDER M.D. 1 QD TAKE 1 TABLET DAILY. [facility] Pravastatin Sodium 40 MG Oral Tablet Pravastatin Sodium 40 M G Oral Tablet 2018-01-05 00:00:00 Yes IBAN ELDER M.D. 1 QD TAKE 1 TABLET DAILY. [facility] Furosemide 20 MG Oral Tablet Furosemide 20 MG Oral Tablet 2016-11-02 00:00:00 Yes IBAN ELDER M.D. TAKE 1 TABLET BY MO [facility] DAILY [facility] Lisinopril 2015-09-02 17:58:00 No Notes: (S meredith as: Prinivil) [facility] Suman metoprolol tartrate 25 mg oral tablet 2015-09-02 17:57:00 Y es 25 mg = 1 tab, PO, BID, # 60 tab, 0 Refill(s) [facility] Suman lisinopril 2.5 mg oral tablet 2015-09-02 17:57:00 Yes 2.5 mg, PO, Daily, # 1 box, 0 Refill(s) Rossy sifuentes Lipitor 2015-09-02 02:00:00 No Notes: Same as Lipitor Rossy Will Crestor 2015-09-02 02:00:00 No 40 mg, Route: PO, Drug form: TAB, Bedtime, Dosing Weight 90.455, kg, Start date: 09/01/15 21:00:00 CDT, Duration: 30 day, Stop date: 09/30/15 21:00:00 CDT Rossy Will heparin sodium, porcine 2500 UNT/ML Injectable Solution 2015-09-01 21:00:00 No Notes: porcine heparin [facility] metoprolol tartrate 2015-09-01 15:32:00 No Notes: (Same as: Lopressor) Rossy Will Trazodone Hydrochloride 50 MG Oral Tablet 2015-09-01 14:00:00 No Notes: (Same As: Desyrel) Rossy Stewart nn Aspirin 81 MG Chewable Tablet 2015-09-01 14:00:00 No Notes: Take with food. Rossy Will clopidogrel 2015-09-01 14:00:00 No Notes: ( Same As: Plavix) Rossy Will valacyclovir 2015-09-01 05:00:00 No Notes: (Same As: Valtrex) Rossy Will Nitroglycerin 2015-09-01 04:29:00 No Notes: (Same as:Nitroquick, Nitrostat) "Do Not Crush" Sublingual tablet Rossy Will tramadol hydrochloride 50 MG Oral Tablet 2015-09-01 02:37:00 No Notes: Not to exceed 400mg/day. (Same As: Ultram) Rossy Will Sodium Chloride 0.9% IV 2015-08-31 18:45:00 Yes IV, 250 ml/hr, ONCE, Start date: 08/31/15 13:45:00 CDT, 250 ml Rossy Will methylPREDNISolone 2015-08-31 17:47:00 No Notes: (Same as:Solu- MEDROL, A-Methapred) Rossy Will Benadryl 2015-08-31 17:47:00 No Notes: (Jay e as: Benadryl) Rossy Will Pepcid 2015-08-31 17:47:00 No Notes: (Same as: Pepcid) Can be dilute in 5-10cc NS IVP: Slow IV push over at least 2 minutes. Rossy Will Sodium Chloride 0.9% IV 1,000 mL 2015-08-31 17:46:00 No 1,000 mL, Rate: 75 ml/hr, Infuse over: 13.3 hr, Route: IV, Dosing Weight 90.455 kg, Total Volume: 1,000, Start date: 08/31/15 12:46:00 CDT, Duration: 1 doses or times, Stop date: 09/01/15 2:03:00 CDT [facility] Suman Nitroglycerin 2015-05-09 16:12:00 Yes 0.4 mg, SL, Q5Min, PRN Chest Pain, 0 Refill(s) [facility] N[facility]in 2015-05-09 16:10:00 No Notes: (Same as:Nitroquick, Nitrostat) "Do Not Crush" Sublingual tablet Rossy Will clopidogrel 75 mg oral tablet 2015-05-09 14:23:00 Yes 75 mg = 1 tab, PO, Daily, 0 Refill(s) [facility] Suman potassium chloride 2015-05-09 14:23:00 Yes 8 mEq, PO, Daily, 0 Refill(s) [facility] tramadol hydrochloride 50 MG Oral Tablet 2015-05-09 14:23:00 Yes 50 mg = 1 tab, PO, Q4H, 0 Refill(s) Berta Will metoprolol 200 mg oral tablet, extended release 2015-05-09 14:23 :00 Yes 200 mg = 1 tab, PO, Daily, 0 Refill(s) [facility] amLODIPine 5 mg oral tablet 2015-05-09 14:23:00 Yes 5 mg = 1 tab, PO, Daily, 0 Refill(s) [facility] gabapentin 600 MG Oral Tablet 2015-05-09 14:23:00 Yes 600 mg = 1 tab, PO, TID, 0 Refill(s) [facility] linaclot[facility] 0.145 MG Oral Capsule [Linzess] 2015-05-09 14:23:00 Yes 145 microgram = 1 cap, PO, Daily, 30 minutes prior to the first meal of the day, # 30 cap, 0 Refill(s) [facility] lisinopril 20 mg oral tablet 2015-05-09 14:23:00 Yes 20 mg = 1 tab, PO, Daily, 0 Refill(s) Rossy Will Trazodone Hydrochloride 50 MG Oral Tablet 2015-05-09 14:23:00 Yes 50 mg = 1 tab, PO, TID, 0 Refill(s) [facility] Fusion Caps 2015-05-09 14:23:00 Yes Fusion Caps, 1 capsule, PO, Daily, Refill(s) 0 Rossy Will Hydrochlorothiazide 25 MG Oral Tablet 2015-05-09 14:23:00 Y es 25 mg = 1 tab, PO, Daily, 0 Refill(s) [facility] [place] Rosuvastatin calcium 40 MG Oral Tablet [Crestor] 2015-05-09 14:23:00 Yes 40 mg = 1 tab, PO, Bedtime, 0 Refill(s) Rossy Will Aspirin Low Dose 81 mg oral tablet 2015-05-09 14:23:00 Yes 0 Refill(s) Rossy Will valACYclovir 1 g oral tablet 2015-05-09 14:23:00 Yes 1 gm = 1 tab, PO, Q8H, 0 Refill(s) Rossy [place] isosorbide mononitrate 30 mg oral tablet, extended release 2015-05-09 14:23:00 Yes 30 mg = 1 tab, PO, QAM, 0 Refil l(s) Rossy Suman Nitroglycerin 0.4 MG Sublingual Tablet [Nitrostat] 2015-05 14:23:00 Yes 0.4 mg = 1 tab, SL, Q5Min, PRN Chest Arnav n, # 100 tab, 0 Refill(s) Rossy Will normal saline 0.9% IV 1,000 mL 2015-05-09 13:40:00 No 1,000 mL, Rate: 100 ml/hr, Infuse over: 10 hr, Route: IV, Dosing Weight 90 kg, Total Volume: 1,000, Start date: 05/09/15 7:40:00, Duration: 30 day, Stop date: 06/08/15 7:39:00 Rossy Will Isosorbide Mononitrate ER 60 MG Oral Tablet Extended R elease 24 Hour Isosorbide Mononitrate ER 60 MG Oral Tablet Extended Release 24 Hour 2014-03-21 00:00:00 Yes IBAN ELDER M.D. 1 Q0.5D TAKE 1 TABLET TWICE DAILY [facility] Hydrochlorothiazide 25 MG Oral Tablet 2013-09-08 22:00:45 Y es (Active) Rossy Will Potassium Chloride ER 8 MEQ Oral Capsule Extended Release 2013-09-08 22:00:45 Yes (Active) Zafarluis alberto al Suman AmLODIPine Besylate 5 MG Oral Tablet 2013-09-08 22:00:45 Ye s (Active) Rossy Will Nitroglycerin 0.4 MG SUBL 2013-09-08 22:00:45 Yes (Active) Rossy Will Clopidogrel Bisulfate 75 MG Oral Tablet 2013-09-08 22:00:45 Yes (Active) Rossy Will Metoprolol Succinate ER 200 MG Oral Tablet Extended Release 24 Hour 2013-09-08 22:00:45 Yes (Active) Jeremi rial Suman Lisinopril 20 MG Oral Tablet 2013-09-08 22:00:45 Yes (Active) Rossy Will Crestor 20 MG Oral Tablet 2013-09-08 22:00:45 Yes (Active) Rossy Will Isosorbide Dinitrate 40 MG TABS 2013-09-08 22:00:45 Yes (Active) Rossy Will Vitamin D3 400 UNIT Oral Tablet 2013-09-08 22:00:45 Yes (Active) Rossy Will Aspirin 81 MG Oral Tablet 2013-09-08 22:00:45 Yes (Active) Rossy Will Naproxen Sodium 550 MG Oral Tablet 2013-08-10 05:00:00 Yes ; Start Date: 08/10/2013; End Date: 11/08/2013 (Active) Rossy Will Naproxen Sodium 550 MG Oral Tablet Naproxen Sodium 550 MG Or al Tablet 2013-08-10 00:00:00 Yes ASHLEY FRAUSTO M.D. Q0.5D TAKE 1 TABLET TWICE DAILY WITH MEALS. [facility] Amlodipine Besylate 5 Mg Tablet Amlodipine Besylate 5 Mg Tablet Yes 5 Daily [facility] Clopidogrel Bisulfate 75 Mg Tablet Clopidogrel Bisulfate 75 Mg Tablet Yes 75 Daily [facility] Gabapentin 600 Mg Tablet Gabapentin 600 Mg Tablet Yes 600 Daily [facility] Hydrochlorothiazide 25 Mg Tablet Hydrochlorothiazide 25 Mg Tablet Yes 25 Daily [facility] Hydrocodone Bit/Acetaminophen (Lorcet Hd Capsule) 1 Ea ch Capsule Hydrocodone Bit/Acetaminophen (Lorcet Hd Capsule) 1 Each Capsule Yes [facility] Hydrocodone Bit/Acetaminophen (Hydrocodon-Acetaminoph 2.5-325) 1 Each Tablet Hydrocodone Bit/Acetaminophen (Hydrocodon-Acetaminoph 2.5-325) 1 Each Tablet Yes As Needed [facility] Isosorbide Mononitrate 30 Mg Tab.sr.24h Isosorbide Mononitra te 30 Mg Tab.sr.24h Yes 40 [facility] Lisinopril 20 Mg Tablet Lisinopril 20 Mg Tablet Yes 20 Daily [facility] Metoprolol Succinate 200 Mg Tab.sr.24h Metoprolol Succinate 200 Mg Tab.sr.24h Yes 200 Daily [facility] Potassium Chloride 8 Meq Tablet.sa Potassium Chloride 8 Meq Tablet.sa Yes 8 Daily [facility] Risedronate Sodium (Actonel) 35 Mg Tablet Risedronate Sodium (Actonel) 35 Mg Tablet Yes 35 Daily [facility] Rosovastatin Rosovastatin Yes 40 Daily [facility] Clopidogrel Bisulfate 75 MG Oral Tablet Clopidogrel Bisulfat e 75 MG Oral Tablet Yes IBAN ELDER M.D. 1 QD TAKE 1 TA BLET DAILY. [facility] Nitroglycerin 0.4 MG Sublingual Tablet Sublingual Nitr oglycerin 0.4 MG Sublingual Tablet Sublingual Yes IBAN Garcia PLACE 1 TAB UNDER THE TONGUE EVERY 5 MINUTES FOR UP TO 3 DOSES NEEDED FOR CHEST PAIN. CALL 911 IF PAIN PERSISTS 5 MINUTES AFTER 3rd DOSE [facility] Lisinopril 40 MG Oral Tablet Lisinopril 40 MG Oral Tablet Yes IBAN ELDER M.D. 1 QD TAKE 1 TABLET DAILY [facility] Metoprolol Succinate ER 200 MG Oral Tablet Extended Re lease 24 Hour Metoprolol Succinate ER 200 MG Oral Tablet Extended Release 24 Hour Yes IBAN ELDER M.D. TAKE 1 TABLET AM AND 0.5 PM AMAN Galvan [facility] traZODone HCl - 100 MG Oral Tablet traZODone HCl - 100 MG Oral Tablet Yes ASHLEY FRAUSTO M.D. 1 TAKE 1 TABLET AT BEDTIME. [facility] Vital Signs Vital Name Observation Time Observation Value Comments Source Systolic blood pressure 2020-03-22 13:34:00 165 mm[Hg] Loca tion: LUE; Position: Sitting [facility] Diastolic blood pressure 2020-03-22 13:34:00 61 mm[Hg] Loc ation: LUE; Position: Sitting [facility] Heart Rate 2020-03-22 13:34:00 91 /min Location: L Radial; Q uality: Normal [facility] Systolic blood pressure 2020-03-22 13:33:00 169 mm[Hg] Loca tion: LUE; Position: Sitting [facility] Diastolic blood pressure 2020-03-22 13:33:00 55 mm[Hg] Loc ation: LUE; Position: Sitting [facility] Heart Rate 2020-03-22 13:33:00 88 /min Location: L Radial; Q uality: Normal [facility] Body height 2020-03-22 13:33:00 62 [in_us] [facility] Weight 2020-03-22 13:33:00 135 [lb_av] [facility] Body mass index (BMI) [Ratio] 2020-03-22 13:33:00 24.69 kg/m2 [facility] Body temperature 2020-03-22 13:33:00 97.6 [degF] Method: Oral [facility] Systolic blood pressure 2020-03-01 14:42:00 145 mm[Hg] Loca tion: LUE; Position: Sitting [facility] Diastolic blood pressure 2020-03-01 14:42:00 66 mm[Hg] Loc ation: LUE; Position: Sitting [facility] Heart Rate 2020-03-01 14:42:00 77 /min [facility] Respiratory rate 2020-03-01 14:42:00 16 /min [facility] Systolic blood pressure 2020-03-01 14:36:00 176 mm[Hg] Loca tion: LUE; Position: Sitting [facility] Diastolic blood pressure 2020-03-01 14:36:00 73 mm[Hg] Loc ation: LUE; Position: Sitting [facility] Heart Rate 2020-03-01 14:36:00 81 /min [facility] Respiratory rate 2020-03-01 14:36:00 16 /min [facility] Body height 2020-03-01 14:36:00 62 [in_us] [facility] Weight 2020-03-01 14:36:00 145.5625 [lb_av] [facility] Body mass index (BMI) [Ratio] 2020-03-01 14:36:00 26.62 kg/m2 [facility] Body temperature 2020-03-01 14:36:00 98 [degF] Method: Temporal [facility] Systolic blood pressure 2019-10-18 11:41:00 166 mm[Hg] Loca tion: LUE; Position: Sitting [facility] Diastolic blood pressure 2019-10-18 11:41:00 65 mm[Hg] Loc ation: LUE; Position: Sitting [facility] Heart Rate 2019-10-18 11:41:00 65 /min Location: L Brachial Artery; [facility] Systolic blood pressure 2019-10-18 11:11:00 159 mm[Hg] Loca tion: LUE; Position: Sitting [facility] Diastolic blood pressure 2019-10-18 11:11:00 68 mm[Hg] Loc ation: LUE; Position: Sitting [facility] Heart Rate 2019-10-18 11:11:00 66 /min Location: L Brachial Artery; [facility] Body height 2019-10-18 11:11:00 62 [in_us] [facility] Weight 2019-10-18 11:11:00 161 [lb_av] [facility] Body mass index (BMI) [Ratio] 2019-10-18 11:11:00 29.45 kg/m2 [facility] Body temperature 2019-10-18 11:11:00 96 [degF] [facility] BP Systolic 2019-04-15 13:32:00 170 mm[Hg] Location: JASON; Positi on: Sitting [facility] BP Diastolic 2019-04-15 13:32:00 66 mm[Hg] Location: JASON; Positi on: Sitting [facility] Heart Rate 2019-04-15 13:32:00 77 /min [facility] BP Systolic 2019-04-15 13:31:00 168 mm[Hg] Location: LUE; Positi on: Sitting [facility] BP Diastolic 2019-04-15 13:31:00 74 mm[Hg] Location: LUE; Positi on: Sitting [facility] Heart Rate 2019-04-15 13:31:00 80 /min [facility] Height 2019-04-15 13:31:00 62 [in_us] [facility] Weight 2019-04-15 13:31:00 175.125 [lb_av] [facility] Body Mass Index Calculated 2019-04-15 13:31:00 32.03 kg/m2 [facility] BP Systolic 2019-03-08 10:16:00 164 mm[Hg] Location: LUE; Positi on: Sitting [facility] BP Diastolic 2019-03-08 10:16:00 61 mm[Hg] Location: NESSAE; Positi on: Sitting [facility] Heart Rate 2019-03-08 10:16:00 88 /min Location: L Radial; Q uality: Normal [facility] Height 2019-03-08 10:16:00 62 [in_us] [facility] Weight 2019-03-08 10:16:00 177 [lb_av] [facility] Body Mass Index Calculated 2019-03-08 10:16:00 32.37 kg/m2 [facility] BP Systolic 2019-01-31 10:14:00 191 mm[Hg] Location: NESSAE; Positi on: Sitting [facility] BP Diastolic 2019-01-31 10:14:00 75 mm[Hg] Location: JASON; Positi on: Sitting [facility] Height 2019-01-31 10:14:00 62 [in_us] [facility] Weight 2019-01-31 10:14:00 179.375 [lb_av] Unive [facility] Body Mass Index Calculated 2019-01-31 10:14:00 32.81 kg/m2 [facility] Temperature 2019-01-31 10:14:00 97.8 [degF] Method: Temporal [facility] Heart Rate 2019-01-31 10:14:00 71 /min [facility] Respiration Rate 2019-01-31 10:14:00 16 /min [facility] BP Systolic 2019-01-18 11:05:00 205 mm[Hg] Location: LUE; Positi on: Sitting [facility] BP Diastolic 2019-01-18 11:05:00 72 mm[Hg] Location: LUE; Positi on: Sitting [facility] Heart Rate 2019-01-18 11:05:00 63 /min [facility] BP Systolic 2019-01-18 11:03:00 217 mm[Hg] Location: LUE; Positi on: Sitting [facility] BP Diastolic 2019-01-18 11:03:00 64 mm[Hg] Location: LUE; Positi on: Sitting [facility] BP Systolic 2019-01-10 15:40:00 189 mm[Hg] Location: LUE; Positi on: Sitting [facility] BP Diastolic 2019-01-10 15:40:00 72 mm[Hg] Location: LUE; Positi on: Sitting [facility] Heart Rate 2019-01-10 15:40:00 84 /min [facility] BP Systolic 2019-01-10 15:20:00 205 mm[Hg] Location: LUE; Positi on: Sitting [facility] BP Diastolic 2019-01-10 15:20:00 68 mm[Hg] Location: LUE; Positi on: Sitting [facility] Height 2019-01-10 15:20:00 62 [in_us] [facility] Weight 2019-01-10 15:20:00 180.4375 [lb_av] [facility] Body Mass Index Calculated 2019-01-10 15:20:00 33 kg/m2 [facility] Temperature 2019-01-10 15:20:00 97.7 [degF] Method: Oral [facility] Heart Rate 2019-01-10 15:20:00 81 /min [facility] BP Systolic 2019-01-07 10:50:00 168 mm[Hg] Location: LUE; Positi on: Sitting [facility] BP Diastolic 2019-01-07 10:50:00 73 mm[Hg] Location: LUE; Positi on: Sitting [facility] Heart Rate 2019-01-07 10:50:00 85 /min Location: L Radial; [facility] BP Systolic 2019-01-07 10:38:00 179 mm[Hg] Location: LUE; Positi on: Sitting [facility] BP Diastolic 2019-01-07 10:38:00 80 mm[Hg] Location: LUE; Positi on: Sitting [facility] Heart Rate 2019-01-07 10:38:00 87 /min Location: L Radial; [facility] Height 2019-01-07 10:38:00 62 [[facility]] [facility] Weight 2019-01-07 10:38:00 179 [lb_av] [facility] Body Mass Index Calculated 2019-01-07 10:38:00 32.74 kg/m2 [facility] BP Systolic 2018-12-13 11:51:00 191 mm[Hg] Location: LUE; Positi on: Sitting [facility] BP Diastolic 2018-12-13 11:51:00 71 mm[Hg] Location: LUE; Positi on: Sitting [facility] Height 2018-12-13 11:51:00 62 [in_us] [facility] Temperature 2018-12-13 11:51:00 97.9 [degF] Method: Oral [facility] Heart Rate 2018-12-13 11:51:00 73 /min [facility] BP Systolic 2018-12-01 15:36:00 181 mm[Hg] Location: LUE; Positi on: Sitting [facility] BP Diastolic 2018-12-01 15:36:00 92 mm[Hg] Location: LUE; Positi on: Sitting [facility] BP Systolic 2018-12-01 12:52:00 202 mm[Hg] Location: LUE; Positi on: Sitting [facility] BP Diastolic 2018-12-01 12:52:00 75 mm[Hg] Location: LUE; Positi on: Sitting [facility] Heart Rate 2018-12-01 12:52:00 72 /min [facility] BP Systolic 2018-12-01 12:39:00 199 mm[Hg] Location: LUE; Positi on: Sitting [facility] BP Diastolic 2018-12-01 12:39:00 73 mm[Hg] Location: LUE; Positi on: Sitting [facility] Heart Rate 2018-12-01 12:39:00 71 /min [facility] Height 2018-12-01 12:39:00 62 [in_us] [facility] Weight 2018-12-01 12:39:00 179.25 [lb_av] [facility] Body Mass Index Calculated 2018-12-01 12:39:00 32.79 kg/m2 [facility] Temperature 2018-12-01 12:39:00 98 [degF] Method: Temporal [facility] Respiration Rate 2018-12-01 12:39:00 16 /min [facility] Systolic 2018-07-29 15:15:00 160 mm[Hg] Location: JASON; Positi on: Sitting [facility] BP Diastolic 2018-07-29 15:15:00 72 mm[Hg] Location: JASON; Positi on: Sitting [facility] Height 2018-07-29 15:15:00 62 [in_us] [facility] Weight 2018-07-29 15:15:00 183.375 [lb_av] [facility] Body Mass Index Calculated 2018-07-29 15:15:00 33.54 kg/m2 [facility] Temperature 2018-07-29 15:15:00 98.3 [degF] Method: Temporal [facility] Heart Rate 2018-07-29 15:15:00 84 /min [facility] Respiration Rate 2018-07-29 15:15:00 16 /min [facility] BP Systolic 2018-07-07 16:11:00 191 mm[Hg] [facility] BP Diastolic 2018-07-07 16:11:00 70 mm[Hg] [facility] Height 2018-07-07 16:11:00 62 [in_us] [facility] Weight 2018-07-07 16:11:00 183 [lb_av] [facility] Body Mass Index Calculated 2018-07-07 16:11:00 33.47 kg/m2 [facility] Heart Rate 2018-07-07 16:11:00 68 /min [facility] Respiration Rate 2018-07-07 16:11:00 16 /min [facility] BP Systolic 2018-06-18 10:42:00 158 mm[Hg] Location: FLOR Positi on: Sitting [facility] BP Diastolic 2018-06-18 10:42:00 77 mm[Hg] Location: LUE; Positi on: Sitting [facility] Height 2018-06-18 10:42:00 62 [in_us] [facility] Weight 2018-06-18 10:42:00 184 [lb_av] [facility] Body Mass Index Calculated 2018-06-18 10:42:00 33.65 kg/m2 [facility] Heart Rate 2018-06-18 10:42:00 80 /min [facility] BP Systolic 2018-02-22 14:19:00 141 mm[Hg] [facility] BP Diastolic 2018-02-22 14:19:00 83 mm[Hg] [facility] Heart Rate 2018-02-22 14:19:00 76 /min [facility] Height 2018-02-22 14:19:00 62 [in_us] [facility] Weight 2018-02-22 14:19:00 195 [lb_av] [facility] Body Mass Index Calculated 2018-02-22 14:19:00 35.67 kg/m2 [facility] Temperature 2018-02-22 14:19:00 97.8 [degF] Method: Temporal [facility] Respiration Rate 2018-02-22 14:19:00 16 /min [facility] BP Systolic 2018-01-05 09:23:00 156 mm[Hg] Location: LUE; Positi on: Sitting [facility] BP Diastolic 2018-01-05 09:23:00 56 mm[Hg] Location: LUE; Positi on: Sitting [facility] Heart Rate 2018-01-05 09:23:00 58 /min [facility] BP Systolic 2018-01-05 09:20:00 192 mm[Hg] Location: LUE; Positi on: Sitting [facility] BP Diastolic 2018-01-05 09:20:00 73 mm[Hg] Location: LUE; Positi on: Sitting [facility] Heart Rate 2018-01-05 09:20:00 71 /min [facility] Height 2018-01-05 09:20:00 62 [in_us] [facility] Weight 2018-01-05 09:20:00 198.5 [lb_av] [facility] Body Mass Index Calculated 2018-01-05 09:20:00 36.31 kg/m2 [facility] Temperature 2018-01-05 09:20:00 97.5 [degF] Method: Temporal [facility] Respiration Rate 2018-01-05 09:20:00 16 /min [facility] BP Systolic 2017-12-15 11:28:00 139 mm[Hg] Location: LUE; Positi on: Sitting [facility] BP Diastolic 2017-12-15 11:28:00 70 mm[Hg] Location: LUE; Positi on: Sitting [facility] Height 2017-12-15 11:28:00 62 [in_us] [facility] Weight 2017-12-15 11:28:00 192.4375 [lb_av] [facility] Body Mass Index Calculated 2017-12-15 11:28:00 35.2 kg/m2 [facility] Temperature 2017-12-15 11:28:00 97.7 [degF] Method: Temporal [facility] Heart Rate 2017-12-15 11:28:00 74 /min Location: L Brachial Artery; [facility] Respiration Rate 2017-12-15 11:28:00 16 /min [facility] BP Systolic 2017-12-04 13:37:00 144 mm[Hg] Location: LUE; Positi on: Sitting [facility] BP Diastolic 2017-12-04 13:37:00 66 mm[Hg] Location: LUE; Positi on: Sitting [facility] Height 2017-12-04 13:37:00 62 [in_us] [facility] Weight 2017-12-04 13:37:00 196 [lb_av] [facility] Body Mass Index Calculated 2017-12-04 13:37:00 35.85 kg/m2 [facility] Heart Rate 2017-12-04 13:37:00 73 /min [facility] BP Systolic 2017-06-05 11:44:00 152 mm[Hg] Location: LUE; Positi on: Sitting [facility] BP Diastolic 2017-06-05 11:44:00 74 mm[Hg] Location: LUE; Positi on: Sitting [facility] Height 2017-06-05 11:44:00 62 [in_us] [facility] Weight 2017-06-05 11:44:00 209.25 [lb_av] [facility] Body Mass Index Calculated 2017-06-05 11:44:00 38.27 kg/m2 [facility] Heart Rate 2017-06-05 11:44:00 109 /min [facility] Respiration Rate 2017-06-05 11:44:00 16 /min [facility] BP Systolic 2017-04-29 13:59:00 109 mm[Hg] Location: LLE; Positi on: Sitting [facility] BP Diastolic 2017-04-29 13:59:00 59 mm[Hg] Location: LLE; Positi on: Sitting [facility] Height 2017-04-29 13:59:00 62 [in_us] [facility] Weight 2017-04-29 13:59:00 210 [lb_av] [facility] Body Mass Index Calculated 2017-04-29 13:59:00 38.41 kg/m2 [facility] Temperature 2017-04-29 13:59:00 100 [degF] Method: Temporal [facility] Heart Rate 2017-04-29 13:59:00 115 /min [facility] Systolic (mm Hg) 2015-09-02 17:00:00 Jeremi rial [facility] Diastolic (mm Hg) 2015-09-02 17:00:00 Mem [facility] Systolic (mm Hg) 2015-09-02 15:00:00 Jeremi [facility]uman Diastolic (mm Hg) 2015-09-02 15:00:00 Mem [facility] Systolic (mm Hg) 2015-09-02 14:00:00 Jeremi [facility] Diastolic (mm Hg) 2015-09-02 14:00:00 [facility] Temperature Oral (F) 2015-09-02 12:00:00 99.1 F [facility] Temperature Oral (F) 2015-09-02 05:30:00 98.2 F [facility] Temperature Oral (F) 2015-09-02 00:00:00 98.5 F [facility] Height 2015-09-01 08:35:00 157.48 cm [facility] BMI Calculated 2015-09-01 08:35:00 Luis A ann [facility] Weight 2015-09-01 08:35:00 [facility] Weight 2015-08-31 16:19:00 [facility] BMI Calculated 2015-08-31 16:19:00 Luis A al [facility] Height 2015-08-31 16:19:00 157.48 cm [facility] Heart Rate 2015-05-09 15:03:00 [facility] Systolic (mm Hg) 2015-05-09 15:03:00 Jeremi rial Suman Diastolic (mm Hg) 2015-05-09 15:03:00 [facility] Respitory Rate 2015-05-09 15:03:00 Luis A al [facility] BMI Calculated 2015-05-09 13:37:00 Luis A [facility] [place] Weight 2015-05-09 13:37:00 [facility] Height 2015-05-09 13:37:00 [facility] Procedure Date / Time Performed Performing Clinician Sourc e Colonoscopy 2020-03-23 00:00:00 [facility] EGD (Esophagogastroduodenoscopy) 2020-03-23 00:00:00 [facility] [Q] LIPID PANEL WITH REFLEX TO DIRECT LDL 2020-03-01 00:00:00 [facility] [QL] CMP W/EGFR 2020-03-01 00:00:00 [facility] [QL] TSH, 3RD GENERATION W/REFLEX TO FT4 2020-03-01 00:00:00 [facility] [QL] CBC (INCLUDES DIFF/PLT) 2020-03-01 00:00:00 [facility] [QL] URINALYSIS, COMPLETE 2020-03-01 00:00:00 [facility] [QL] HEMOGLOBIN A1c 2020-03-01 00:00:00 [facility] MA Digital Mammo Screening Milo [id number] 2020-03-01 00:00:00 [facility] MA Bone Density Scan [id number] 2020-03-01 00:00:00 [facility] [N] 2D Echo complete, with Doppler [id number] 2019-10-18 00:00:00 [facility] [N] 2D Echo complete, with Doppler [id number] 2019-03-08 00:00:00 [facility] [N] 2D Echo complete, with Doppler [id number] 2019-01-07 00:00:00 [facility] [QL] CULTURE, URINE, ROUTINE 2018-12-13 00:00:00 [facility] [[facility]] URINALYSIS, COMPLETE 2018-12-13 00:00:00 [facility] Pelvis with Pelvis Transvaginal [id number] 2018-12-13 00:00:00 [facility] [QLH] HEPATITIS C ANTIBODY 2018-12-01 00:00:00 [facility] [Q] LIPID PANEL WITH REFLEX TO DIRECT LDL 2018-07-29 00:00:00 [facility] [QLH] CMP W/EGFR 2018-07-29 00:00:00 [facility] [QL] TSH, 3RD GENERATION W/REFLEX TO FT4 2018-07-29 00:00:00 [facility] [QL] CBC (INCLUDES DIFF/PLT) 2018-07-29 00:00:00 [facility] [[facility]] URINALYSIS, COMPLETE 2018-07-29 00:00:00 [facility] AL Digital Mammo Screening Milo [id number] 2018-07-29 00:00:00 [facility] AL Bone Density Scan [id number] 2018-07-29 00:00:00 [facility] [N] Nuclear Test-Adenosine Stress Perfusion 2018-06-18 00:00:00 [facility] XRAY Knee 3 views [id number] 2018-01-05 00:00:00 [facility] [QL] CBC (INCLUDES DIFF/PLT) 2017-12-15 00:00:00 [facility] [QLH] CMP W/EGFR 2017-12-15 00:00:00 [facility] [QL] TSH, 3RD GENERATION 2017-12-15 00:00:00 [facility] [Q] LIPID PANEL WITH REFLEX TO DIRECT LDL 2017-12-15 00:00:00 [facility] Renal [id number] 2017-12-15 00:00:00 [facility] [N] 2D Echo complete, with Doppler [id number] 2017-06-05 00:00:00 [facility] MA Digital Mammo Screening Milo [id number] 2017-04-29 00:00:00 [facility] Cardiac catheterization, left heart 2015-05-09 06:00:00 [facility] History of Breast Surgery Lumpectomy [facility] History of Rotator Cuff Repair [facility] History of Breast Surgery Mastectomy [facility] History of Colonoscopy [facility] History of Cath Stent Placement [facility] Cath Placement Of Stent 3 [facility] Mastectomy [facility] Placement of stent [facility] Plan of Care Planned Activity Planned Date Details Comments Source Future Scheduled Test 2020-06-19 00:00:00 [N] 2D Echo comple te, with Doppler [id number] [code = [N] 2D Echo complete, with Doppler 33758] [facility] Future Scheduled Test 2020-06-19 00:00:00 [N] 2D Echo comple te, with Doppler 48384 [code = [N] 2D Echo complete, with Doppler 12609] [facility] Future Scheduled Test 2020-04-10 00:00:00 Colonoscopy [code = 83827 001] [facility] Future Scheduled Test 2020-04-10 00:00:00 EGD (Esophagogastr oduodenoscopy) [code = EGD (Esophagogastroduodenoscopy)] [facility] Diagnostic Test Pending 2019-07-04 00:00:00 [N] 2D Echo comp lete, with Doppler 07894 [code = [N] 2D Echo complete, with Doppler 25809] [facility] Diagnostic Test Pending 2019-03-08 00:00:00 [N] 2D Echo comp lete, with Doppler 14048 [code = [N] 2D Echo complete, with Doppler 50515] [facility] Diagnostic Test Pending 2017-12-02 00:00:00 [N] 2D Echo comp lete, with Doppler 24849 [code = [N] 2D Echo complete, with Doppler 43932] [facility] Future Scheduled Test 2013-09-08 22:00:45 Plan of Care [code = 1877 6-5] [facility] Future Scheduled Test 2013-08-25 15:46:41 Plan of Care [code = 1877 6-5] [facility] Future Scheduled Test 2013-08-17 14:01:46 Plan of Care [code = 1877 6-5] [facility] Scheduled Test 2013-08-15 06:45:09 Plan of Care [code = 1877 6-5] [facility] Scheduled Test 2013-08-12 13:45:40 Plan of Care [code = 1877 6-5] [facility] Scheduled Test 2013-08-10 22:45:52 Plan of Care [code = 1877 6-5] [facility] Appointment 2020-06-19 10:00:00 Tamiko CAMERON [facility] Future Appointment 2020-06-19 09:00[facility] 2020-04-10 11:30:00 URVASHI LOCO, [facility] Future Appointment 2020-04-05 10:00:00 Tamiko RAMIREZ [facility] Encounters Start Date/Time End Date/Time Encounter Type Admission Type Att[facility] Care Department Encounter ID Source 2020-03-22 13:30:00 2020-03-22 13:30:00 Appointment; BERONICA LEA PA CATALANO, MARC, PA [facility], [address] [id number] [facility] 2020-03-01 14:30:00 2020-03-01 14:30:00 Appointment; ASHLEY FRAUSTO M .D. BAI, KRISTY, M.D. [facility] [id number] [facility] 2019-10-18 11:00:00 2019-10-18 11:00:00 Appointment; IBAN CARABALLO M.D. CHARITAKIS, KONSTANTINOS, M.D. [facility], [address] [id number] [facility] 2019-06-07 09:42:34 2019-06-07 09:57:34 Office Visit Dustin Pretty [facility] [id number] 2019-04-15 13:20:00 2019-04-15 13:20:00 Appointment; IBAN CARABALLO M.D. CHARITAKIS, KONSTANTINOS, M.D. [facility], [address] [id number] [facility] 2019-04-04 16:00:00 2019-04-04 16:00:00 Appointment; SIOBHAN E GARRY [facility]MS, ECHO [facility] [id number] [facility] 2019-03-08 10:20:00 2019-03-08 10:20:00 Appointment; IBAN CARABALLO M.D. CHARITAKIS, KONSTANTINOS, M.D. [facility], [address] [id number] [facility] 2019-02-06 14:42:00 2019-02-06 15:52:00 Departed Emergency Room [facility] [id number] [facility] 2019-01-31 10:00:00 2019-01-31 10:00:00 Appointment; ASHLEY FRAUSTO M .D. BAI, KRISTY, M.D. [facility] [id number] [facility] 2019-01-10 15:10:00 2019-01-10 15:10:00 Appointment; RAUL HALL D.O. DOUGHER, ERIN, D.O. [facility] [id number] [facility] 2019-01-07 10:20:00 2019-01-07 10:20:00 Appointment; IBAN CARABALLO M.D. CHARITAKIS, KONSTANTINOS, M.D. [facility] [id number] [facility] 2018-12-17 09:43:00 2018-12-17 23:59:00 Outpatient Raul Hall OIB OIB [id number] 2018-12-13 12:45:00 2018-12-13 12:45:00 Appointment; RAUL HALL D.O. DOUGHER, ERIN, D.O. [facility] [place] [facility] [place] [id number] [facility] 2018-12-01 12:30:00 2018-12-01 12:30:00 Appointment; ASHLEY FRAUSTO M .D. BAI, KRISTY, M.D. [facility] [id number] [facility] 2018-08-03 10:20:00 2018-08-03 10:20:00 Appointment; IBAN CARABALLO M.D. CHARITAKIS, KONSTANTINOS, M.D. [facility] [id number] [facility] 2018-07-29 14:45:00 2018-07-29 14:45:00 Appointment; ASHLEY FRAUSTO M .D. BAI, KRISTY, M.D. [facility] [id number] [facility] 2018-07-07 16:20:00 2018-07-07 16:20:00 Appointment; IBAN CARABALLO M.D. CHARITAKIS, KONSTANTINOS, M.D. [facility] [address] [id number] [facility] 2018-07-07 11:00:00 2018-07-07 11:00:00 Appointment; [facility], N UCLEAR [facility]MS, NUCLEAR [facility] [id number] [facility] 2018-06-18 10:20:00 2018-06-18 10:20:00 Appointment; IBAN CARABALLO M.D. CHARITAKIS, KONSTANTINOS, M.D. [facility] [address] [id number] [facility] 2018-04-21 10:30:00 2018-04-21 10:30:00 Appointment; GARO DELUNA M.D. HUANG, EDDIE, M.D. [facility] [id number] [facility] 2018-02-22 14:00:00 2018-02-22 14:00:00 Appointment; ASHLEY FRAUSTO M .D. BAI, KRISTY, M.D. [facility] [address] [id number] [facility] 2018-01-27 13:45:00 2018-01-27 13:45:00 Appointment; GARO DELUNA M.D. HUANG, EDDIE, M.D. [facility] [id number] [facility] 2018-01-06 11:39:00 2018-01-06 23:59:00 Outpatient Ashley Frausto Y MHOIB MHOIB [id number] 2018-01-05 09:00:00 2018-01-05 09:00:00 Appointment; ASHLEY FRAUSTO M .D. BAI, KRISTY, M.D. [facility] [address] [id number] [facility] 2017-12-22 13:55:00 2017-12-22 23:59:00 Outpatient Mitch Frausto Y MHHOIP HOIP [id number] 2017-12-15 11:15:00 2017-12-15 11:15:00 Appointment; ASHLEY FRAUSTO M .D. BAI, KRISTY, M.D. [facility] [address] [id number] [facility] 2017-12-04 14:00:00 2017-12-04 14:00:00 Appointment; IBAN CARABALLO M.D. CHARITAKIS, KONSTANTINOS, M.D. [facility] [address] [id number] [facility] 2017-12-04 13:00:00 2017-12-04 13:00:00 Appointment; Camilo MCCANN-MS, CLEMENTINA [facility] [id number] [facility] 2017-06-05 11:20:00 2017-06-05 11:20:00 Appointment; IBAN CARABALLO M.D. CHARITAKIS, KONSTANTINOS, M.D. [facility] [address] [id number] [facility] 2017-04-29 13:45:00 2017-04-29 13:45:00 Appointment; ASHLEY FRAUSTO M .D. BAI, KRISTY, M.D. [facility] [address] [id number] [facility] 2016-11-28 11:00:00 2016-11-28 11:00:00 Appointment; IBAN CARABALLO M.D. CHARITAKIS, KONSTANTINOS, M.D. [facility]TP [id number] [facility] 2016-05-30 11:20:00 2016-05-30 11:20:00 Appointment; IBAN CARABALLO M.D. CHARITAKIS, KONSTANTINOS, M.D. UTP UTP [id number] [facility] 2016-05-30 10:00:00 2016-05-30 10:00:00 Appointment; [place]-[facility], E CHO [place]-MS, ECHO UTP UTP [id number] [facility] 2016-04-09 10:00:00 2016-04-09 10:00:00 Appointment; ASHLEY FRAUSTO M .D. BAI, KRISTY, M.D. [facility]TP UTP [id number] [facility] 2016-03-19 12:00:00 2016-03-19 23:59:00 [facility] [id number] 2016-03-12 09:30:00 2016-03-12 09:30:00 Appointment; ASHLEY FRAUSTO M .D. BAI, KRISTY, M.D. UTP UTP [id number] [facility] 2016-02-27 15:00:00 2016-02-27 15:00:00 Appointment; IBAN CARABALLO M.D. CHARITAKIS, KONSTANTINOS, M.D. [facility]TP [id number] [facility] 2016-02-13 09:45:00 2016-02-13 09:45:00 Appointment; ASHLEY FRAUSTO M .D. BAI, KRISTY, M.D. UTP UTP [id number] [facility] 2015-11-08 09:15:00 2015-11-08 09:15:00 Appointment; ASHLEY FRAUSTO M .D. BAI, KRISTY, M.D. UTP UTP [id number] [facility] 2015-10-31 16:40:00 2015-10-31 16:40:00 Appointment; IBAN CARABALLO M.D. CHARITAKIS, KONSTANTINOS, M.D. UTP UTP [id number] [facility] 2015-09-14 11:00:00 2015-09-14 11:00:00 Appointment; IBAN CARABALLO M.D. CHARITAKIS, KONSTANTINOS, M.D. UTP UTP [id number] [facility] 2015-08-31 23:43:00 2015-09-02 13:55:00 Outpatient Nelsy Salas [facility] [id number] 2015-07-24 10:20:00 2015-07-24 10:20:00 Appointment; IBAN CARABALLO M.D. CHARITAKIS, KONSTANTINOS, M.D. UTP UTP [id number] [facility] 2015-05-16 17:00:00 2015-05-16 17:00:00 Appointment; IBAN CARABALLO M.D. CHARITAKIS, KONSTANTINOS, M.D. [facility]TP UTP [id number] [facility] 2015-05-15 11:00:00 2015-05-15 11:00:00 Appointment; ASHLEY FRAUSTO M .D. BAI, KRISTY, M.D. UTP UTP [id number] [facility] 2015-05-09 07:08:00 2015-05-09 12:38:00 Outpatient Iban CaraballoSE MHSE [id number] 2014-01-13 08:00:00 2014-02-11 23:59:00 Outpatient Gilles Cohen MHIE MHIE [id number] 2013-11-28 13:00:00 2013-12-27 23:59:00 Outpatient Gilles Cohen MHIE MHIE [id number] 2013-09-08 17:00:46 2013-09-08 17:00:45 Outpatient MHIE MHIE [id number] 2013-08-25 10:46:41 2013-08-25 10:46:41 Outpatient MHIE MHIE [id number] 2013-08-17 09:01:46 2013-08-17 09:01:46 Outpatient MHIE MHIE [id number] 2013-08-15 01:45:09 2013-08-15 01:45:09 [id number] 2013-08-12 08:45:41 2013-08-12 08:45:40 [facility] [id number] 2013-08-10 17:45:53 2013-08-10 17:45:52 [facility] [id number] Results Test Description Test Time Test Comments Results Result Comments Source [Q] LIPID PANEL WITH REFLEX TO DIRECT LDL 2020-03-13 09:38:0 0 Test Item CHOLESTEROL, TOTAL; Normal (test code = 2093-3) 166 mg/dl <200 N HDL CHOLESTEROL; Below Low Threshold (test code = 2085-9) 47 mg/dl > OR = 50 TRIGLYCERIDES; Normal (test code = 2571-8) 129 mg/dl <150 N LDL-CHOLESTEROL; Normal (test code = 42640-4) 96 {MG/DL SEGUNDO} N Reference range: <100 Desirable range <100 mg/dL for primary prevention; <70 mg/dL for patients with CHD or diabetic patients with > or = 2 CHD risk factors. LDL-C is now calculated using the Roger-Mcmahon calculation, which is a validated novel method providing better accuracy than the Friedewald equation in the estimation of LDL-C. Roger SS et al. LUZ MARIA. 2013;310(19): 5099-4491 (http ://education.[employer].Enablon/faq/CWO396) CHOL/HDLC RATIO (test code = CHOL/HDLC RATIO) 3.5 {CALC} <5.0 N NON HDL CHOLESTEROL (test code = NON HDL CHOLESTEROL) 119 {MG/DL C AL} <130 N For patients with diabetes plus 1 major ASCVD risk factor, treating to a non-HDL-C goal of <100 mg/dL (LDL-C of <70 mg/dL) is considered a therapeutic option. [facility][QL] CMP [id number] 09:38:00* Test Item Value Reference Range Interpretation Comments GLUCOSE; Above High Threshold (test code = 1547-9) 109 mg/dl 65- 99 Fasting reference interval For someone without known diabetes, a glucose valuebetween 100 and 125 mg/dL is consistent withprediabetes and should be confirmed with afollow-up test. UREA NITROGEN (BUN) (test code = UREA NITROGEN (BUN)) 8 mg/dl 7-25 N CREATININE (test code = CREATININE) 0.95 mg/dl 0.60-0.93 For patients >49 years of age, the reference limitfor Creatinine is approximately 13% higher for peopleidentified as -[place]. eGFR NON-AFR. UZBEK (test code = eGFR NON-AFR. UZBEK) 59 {ML/MIN/1.7} > OR = 60 eGFR (test code = eGFR ) 69 {ML/MIN/1.7} > OR = 60 N BUN/CREATININE RATIO (test code = BUN/CREATININE RATIO) 8 {CALC} 6-22 N SODIUM (test code = SODIUM) 139 mmol/L 135-146 N POTASSIUM (test code = POTASSIUM) 3.5 mmol/L 3.5-5.3 N CHLORIDE (test code = CHLORIDE) 105 mmol/L 98-110 N CARBON DIOXIDE (test code = CARBON DIOXIDE) 26 mmol/L 20-32 N CALCIUM (test code = CALCIUM) 9.3 mg/dl 8.6-10.4 N PROTEIN, TOTAL (test code = PROTEIN, TOTAL) 6.4 g/dl 6.1-8.1 N ALBUMIN (test code = ALBUMIN) 3.9 g/dl 3.6-5.1 N GLOBULIN (test code = GLOBULIN) 2.5 {G/DL CALC} 1.9-3.7 N ALBUMIN/GLOBULIN RATIO (test code = ALBUMIN/GLOBULIN RATIO) 1.6 {CALC} 1.0-2.5 N BILIRUBIN, TOTAL; Normal (test code = 39780-9) 0.4 mg/dl 0.2-1.2 N ALKALINE PHOSPHATASE (test code = ALKALINE PHOSPHATASE) 94 u/l 37-153 N AST; Normal (test code = 1916-6) 21 u/l 10-35 N ALT; Normal (test code = 1742-6) 10 u/l 6-29 N [facility][] URINALYSIS, [id number] 09:38:00* Test Item Value Reference Range Interpretation Comments COLOR; Normal (test code = 5778-6) YELLOW YELLOW N APPEARANCE (test code = APPEARANCE) CLEAR CLEAR N SPECIFIC GRAVITY; Normal (test code = 2965-2) 1.020 1.001-1. 035 N PH; Normal (test code = 2756-5) 6.0 5.0-8.0 N GLUCOSE; Normal (test code = 1547-9) NEGATIVE NEGATIVE N BILIRUBIN; Normal (test code = 43672-0) NEGATIVE NEGATIVE N KETONES; Normal (test code = 53039-8) NEGATIVE NEGATIVE N OCCULT BLOOD; Normal (test code = 80908-6) NEGATIVE NEGATIVE N PROTEIN; Abnormal (test code = 45729-1) 1+ NEGATIVE A NITRITE; Normal (test code = 17082-8) NEGATIVE NEGATIVE N LEUKOCYTE ESTERASE (test code = LEUKOCYTE ESTERASE) 1+ NE GATIVE A WBC; Abnormal (test code = 6690-2) 6-10 < OR = 5 A RBC; Normal (test code = 789-8) NONE SEEN < OR = 2 N SQUAMOUS EPITHELIAL CELLS (test code = 44200-7) 0-5 < OR = 5 BACTERIA; Abnormal (test code = 630-4) FEW NONE SEEN A HYALINE CAST; Abnormal (test code = 37188-1) 0-1 NONE SEEN A COMMENTS (test code = 23995-2) FEW MUCOUS THREADS [facility][QL] CBC (INCLUDES DIFF/PLT)2020-03-13 09:38:00* Test Item Value Reference Range Interpretation Comments WHITE BLOOD CELL COUNT (test code = WHITE BLOOD CELL COUNT) 2.7 {Thousand/u} 3.8-10.8 RED BLOOD CELL COUNT (test code = RED BLOOD CELL COUNT) 3.91 {Million/uL} 3.80-5.10 N HEMOGLOBIN; Below Low Threshold (test code = 19791-3) 10.5 g/dl 11.7-15.5 HEMATOCRIT; Below Low Threshold (test code = 4544-3) 32.3 % 3 5.0-45.0 MCV; Normal (test code = 787-2) 82.6 fL 80.0-100.0 N MCHC; Normal (test code = 43635-0) 32.5 g/dl 32.0-36.0 N RDW; Normal (test code = 788-0) 14.2 % 11.0-15.0 N PLATELET COUNT; Normal (test code = 777-3) 156 {Thousand/u} 140-400 N MPV; Above High Threshold (test code = 35553-5) 12.6 fL 7.5-12 .5 ABSOLUTE NEUTROPHILS (test code = ABSOLUTE NEUTROPHILS) 1010 {cells/uL} 0837-3857 ABSOLUTE LYMPHOCYTES (test code = ABSOLUTE LYMPHOCYTES) 1355 {cells/uL} 850-3900 N ABSOLUTE MONOCYTES (test code = ABSOLUTE MONOCYTES) 324 {cells/uL} 200-950 N ABSOLUTE EOSINOPHILS (test code = ABSOLUTE EOSINOPHILS) 11 {cells/u L} 15-500 ABSOLUTE BASOPHILS (test code = ABSOLUTE BASOPHILS) 0 {cells/uL} 0- 200 N NEUTROPHILS (test code = NEUTROPHILS) 37.4 % N LYMPHOCYTES (test code = LYMPHOCYTES) 50.2 % N MONOCYTES; Normal (test code = 51056-3) 12.0 % N EOSINOPHILS; Normal (test code = 17668-6) 0.4 % N BASOPHILS; Normal (test code = 46617-4) 0.0 % N [facility][QL] TSH, 3RD GENERATION W/REFLEX TO [id number] 09:38:00* Test Item Value Reference Range Interpretation Comments TSH, 3RD GENERATION W/REFLEX TO FT4 (corby t code = TSH, 3RD GENERATION W/REFLEX TO FT4) 2.33 {MIU/L} 0.40-4.50 N [facility][QL] HEMOGLOBIN [id number] 09:38:00* Test Item Value Reference Range Interpretation Comments HEMOGLOBIN A1c; Normal (test code = 4548-4) 5.2 {% of total} <5.7 N For the purpose of screening for the presence ofdiabetes: <5.7% Consistent with the absence of diabetes5.7-6.4% Consistent with increased risk for diabetes (prediabetes)> or =6.5% Consistent with diabetes This assay result is consistent with a decreased riskof diabetes. Currently, no consensus exists regarding use ofhemoglobin A1c for diagnosis of diabetes in children. According to [place] Diabetes Association (ADA)guidelines, hemoglobin A1c <7.0% represents optimalcontrol in non- diabetic patients. Differentmetrics may apply to specific patient populations. Standards of Medical Care in Diabetes(ADA). [facility] Pelvis with Pelvis Transvaginal [id number] 09:21:00EXAM: US PELVIS TRANSABDOMINALEXAM: US PELVIS TRANSVAGINALDATE: 12/17/2018 9:21 CDTINDICATION: - N95.0 Postmenopausal bleedingADDITIONAL INFORMATION: 73-year-old woman postmenopausal. Patient hadsome bleeding one year ago per technologist notes.COMPARISON: Pelvic ultrasound 03/19/2016TECHNIQUE: Multiplanar grayscale and color Doppler ultrasound of the pelviswere obtained transabdominally through a distended urinary bladder followed bytransvaginal examination postvoid.FINDINGS:Uterus:Orientation: Anteflexed.Size: 6.2 x 2.8 x 4.1 cmEchogenicity: Heterogeneous.Masses:Anterior mid uterine body intramural fibroid measures 1.1 x 0.8 x 1 cm.Cervix: Post. Nabothian cysts.Endometrium: 0.4 cm. No focal lesions. Small amount of fluid within theendometrial cavity.Right ovary:Size: 2.3 x 1.2 x 2.3 cm, volume of 3.2 mLCysts: None.Masses: None.Left ovary:Size: 1.7 x 0.8 x 0.7 cm, volume of 0.5 mLCysts: None.Masses: None.Adnexa: No large lesions.Free fluid: None.Other findings: None.IMPRESSION:1. Postmenopausal uterus without focal endometrial lesions. Endometrial stripewithin normal limits for a postmenopausal woman. Small amount nonspecificfluid.2. Postmenopausal ovaries. No adnexal lesions.3. Fibroid uterus.--Read by: Sander Dash MD PHDDictated Date/time: 12/17/18 10:57Electronically Signed by: Sander Dash MD PH 12/17/1910:01[facility]] URINALYSIS, [id number] 13:57:01* Test Item Value Reference Range Interpretation Comments UA Color (test code = 5778-6) Yellow UA Turbidity; Abnormal (test code = 92043-3) Marked Clear A UA Spec Grav (test code = 5810-7) 1.015 <=1.030 UA pH (test code = 5803-2) 5.0 5.0-8.0 UA Protein (test code = 70926-8) Negative Negative UA Glucose (test code = 75675-6) Negative Negative UA Ketones (test code = 82729-2) Negative Negative UA Bili (test code = 5770-3) Negative Negative UA Blood; Abnormal (test code = 5794-3) Small Negative A UROBILINOGEN (test code = 15951-7) <=1.0 0.1-1.0 UA Nitrite; Abnormal (test code = 5802-4) Positive Negative A UA Leuk Est; Abnormal (test code = 5799-2) Trace Negative A UA RBC (test code = 96785-8) <1 0-2 UA WBC (test code = 24553-5) 1 {/HPF} 0-5 UA Bacteria (test code = 46674-3) Few None Seen UA Mucus (test code = 8247-9) Few None Seen UA Sq Epi (test code = 02796-9) Occasional Few Urine Hyaline Casts; Above High Threshold (test code = 83313-2) 4 { /LPF} 0-2 [facility]] CULTURE, URINE, [id number] 13:57:01* Test Item Value Reference Range Interpretation Comments ORGANISM (test code = 699-9) Escherichia coli FINAL REPORT (test code = FINAL REPORT) >100,000 CFU/m L Escherichia coli 10,000 - 50,000 CFU/mL Skin Haley [facility][H] [id number] 13:57:01* Test Item Value Reference Range Interpretation Comments ORGANISM (test code = 699-9) Escherichia coli Amikacin (test code = Amikacin) - S Ampicillin (test code = Ampicillin) - S Ampicillin/Sulbactam (test code = Ampicillin/Sulbactam) - S Cefazolin (test code = Cefazolin) - S Ceftriaxone (test code = Ceftriaxone) - S Ciprofloxacin (test code = Ciprofloxacin) - S Cefepime (test code = Cefepime) - S ESBL Confirmation (test code = ESBL Confirmation) - Gentamicin (test code = Gentamicin) - S Levofloxacin (test code = Levofloxacin) - S Nitrofurantoin (test code = Nitrofurantoin) - S Piperacillin/Tazobactam (test code = Piperacillin/Tazobactam) - S Trimethoprim/Sulfamethoxazole (test code = Trimethoprim/Sulfamethox azole) - S Tobramycin (test code = Tobramycin) - S Cefuroxime (test code = Cefuroxime) - I Meropenem (test code = Meropenem) - S Tetracycline (test code = Tetracycline) SEE NOTES S S= Susceptible, R= Resistant, I= Intermediate, N/A= Not Applicable [facility]] HEPATITIS C [id number] 12:22:00* Test Item Value Reference Range Interpretation Comments HEPATITIS C ANTIBODY; Normal (test code = 94766-8) NON-REACTIVE NON -REACTIVE N SIGNAL TO CUT-OFF (test code = SIGNAL TO CUT-OFF) 0.01 <1.0 0 N HCV antibody was non-reactive. There is no laboratory evidence of HCV infection. In most cases, no further action is required. However,if recent HCV exposure is suspected, a test for HCV RNA(test code 96439) is suggested. For additional information please refer tohttp://education.[employer]/faq/CPE65a9(This link is being provided for informational/educational purposes only.) [facility]icians[facility] M[facility] LEFT [place] CAD [id number] 14:43:44 - SCR MAMM LEFT [place] CAD DIGITALUNILATERAL LEFT DIGITAL SCREENING MAMMOGRAM 3D/ 2D WITH CAD: 10/14/2018CLINICAL: Asymptomatic. Digital breast tomosynthesis was performed in addition to routine CC and MLO views. Current mammographic images were evaluated by either a [facility] M-Vu or a [employer] ImageChecker CAD (computer a ided detection system). Comparison is made to exams dated 05/28/2017 mammogram, 03/20/2016 mammogram, and 01/17/2015 mammogram - [facility]. Th e tissue of the left breast is predominantly fatty. Status post mastectomy righ t breast.There are benign calcifications in the left breast. There also are zainab ign densities and intramammary nodes in the left breast. No suspicious mass, ar chitectural distortion, malignant type calcification, or lymph node abnormality detected. Breast architecture is stable compared to prior exams.IMPRESSION: ZAINAB IGNThere is no mammographic evidence of malignancy. Resume annual screening mamm ography in one year. Herson Bacon M.D. ss/:10/14/2018 14:43:44 I maging Technologist: Joy Becker FW, [facility] sent: BIRADS 1-2 Normal Mammogram BI-RADS: 2 Benign[[facility]] CBC (INCLUDES DIFF/PLT) 2018-07-30 09:29:00* Test Item Value Reference Range Interpretation Comments WBC (test code = 6690-2) 5.7 {K/CMM} 3.7-10.4 RBC (test code = 789-8) 4.47 {M/CMM} 4.20-5.40 Hgb (test code = 718-7) 12.6 g/dl 12.0-16.0 Hct (test code = 72302-3) 37.8 % 36.0-48.0 MCV (test code = 787-2) 84.5 fL 80.0-98.0 MCH (test code = 785-6) 28.2 pg 27.0-31.0 MCHC (test code = 786-4) 33.4 g/dl 32.0-36.0 RDW; Above High Threshold (test code = 788-0) 15.7 % 11.5-14. 5 Platelet (test code = 20063-3) 210 {K/CMM} 133-450 Mean Platelet Volume (test code = 02263-5) 10.1 fL 7.4-10.4 [facility]] [id number] 09:29:00* Test Item Value Reference Range Interpretation Comments Segmented Neutrophils (test code = 55001-6) 58.7 % 45.0-75.0 Monocytes (test code = 83515-7) 9.3 % 2.0-12.0 Lymphocytes (test code = 89424-9) 29.2 % 20.0-40.0 Eosinophils (test code = 77236-0) 2.5 % 0.0-4.0 Basophils (test code = 706-2) 0.3 % 0.0-1.0 Segs-Bands # (test code = 21952-0) 3.4 {K/CMM} 1.5-8.1 Lymphocytes # (test code = 21986-3) 1.7 {K/CMM} 1.0-5.5 Monocytes # (test code = 79490-9) 0.5 {K/CMM} 0.0-0.8 Eosinophils # (test code = 74677-3) 0.1 {K/CMM} 0.0-0.5 [facility]] CMP [id number] 09:29:00* Test Item Value Reference Range Interpretation Comments Sodium Level (test code = 2951-2) 143 {mEq/l} 135-145 Potassium Level (test code = 2823-3) 3.8 {mEq/l} 3.5-5.1 Chloride Level (test code = 2075-0) 106 {mEq/l} 95-109 Carbon Dioxide (test code = 2027-9) 30 {mEq/l} 24-32 AGAP (test code = 61604-3) 10.8 {mEq/l} 10.0-20.0 Glucose Lvl (test code = 2345-7) 95 mg/dl 70-99 Adult reference range values reflect the clinical guidelinesof the [place] [employer]. Creatinine Lvl (test code = 2160-0) 1.10 mg/dl 0.50-1.40 Blood Urea Nitrogen (test code = 3094-0) 13 mg/dl 7-22 BUN/Creatinine Ratio (test code = 3097-3) 12 6-25 Total Protein (test code = 2885-2) 7.3 g/dl 6.4-8.4 Albumin Lvl (test code = 1751-7) 3.8 g/dl 3.5-5.0 Globulin (test code = 98487-8) 3.5 g/dl 2.7-4.2 A/G Ratio (test code = 1759-0) 1.1 0.7-1.6 Calcium Level Total (test code = 83966-4) 9.8 mg/dl 8.5-10.5 ALT (test code = 1743-4) 19 u/l 0-65 AST (test code = 46453-8) 20 u/l 0-37 Bili Total (test code = 1974-) 0.3 mg/dl 0.2-1.3 Alk Phos (test code = 1783-0) 133 u/l 39-136 eGFR (test code = 54672-6) 50 {ML/MIN/1.7} The eGFR is calculated using the CKD-EPI formula. In most young, healthyindividuals the eGFR will be >90 mL/min/1.73m2. The eGFR declines with age. AneGFR of 60-89 may be normal in some populations, particularly the elderly, forwhom the CKD-EPI formula has not been extensively validated. Use of the eGFR isnot recommended in the following populations:Individuals with unstable creatinine concentrations, including patients and those with serious co-morbid conditions.Patients with extremes in muscle mass or diet.The data above are obtained from the [employer] Program(NKDEP) which additionally recommends that when the eGFR is used in patientswith extremes of body mass index for purposes of drug dosing, the eGFR shouldbe multiplied by the estimated BMI. [facility] Physicians[[facility]] TSH, 3RD GENERATION W/REFLEX TO FT4 2018-07-30 09:29:00* Test Item Value Reference Range Interpretation Comments TSH (test code = 97176-2) 1.870 {uIU/ml} 0.360-3.740 [facility][] LIPID PANEL WITH REFLEX TO DIRECT LDL 2018-07-30 09:29:00* Test Item Value Reference Range Interpretation Comments Chol (test code = 2093-3) 195 mg/dl <=199 Trig (test code = 2571-8) 81 mg/dl <=149 HDL Cholesterol; Below Low Threshold (test code = 2085-9) 58 mg/dl >=61 CHD Risk; Below Low Threshold (test code = 98714-2) 3.36 3. 90-5.80 LDL; Above High Threshold (test code = 96956-8) 121 mg/dl <=99 VLDL (test code = VLDL) 16 [facility]] URINALYSIS, [id number] 09:29:00* Test Item Value Reference Range Interpretation Comments UA Color (test code = 5778-6) Colorless Yellow UA Turbidity (test code = 54991-2) Clear Clear UA Spec Grav (test code = 5810-7) 1.006 <=1.030 UA pH (test code = 5803-2) 7.0 5.0-8.0 UA Protein (test code = 69928-4) Negative Negative UA Glucose (test code = 64334-2) Negative Negative UA Ketones (test code = 00295-2) Negative Negative UA Bili (test code = 5770-3) Negative Negative UA Blood (test code = 5794-3) Negative Negative UROBILINOGEN (test code = 25091-8) <=1.0 0.1-1.0 UA Nitrite (test code = 5802-4) Negative Negative UA Leuk Est; Abnormal (test code = 5799-2) Small Negative A UA RBC (test code = 22762-8) 1 {/HPF} 0-2 UA WBC (test code = 75993-1) 4 {/HPF} 0-5 UA Bacteria (test code = 24660-2) Few None Seen UA Mucus (test code = 8247-9) Few None Seen UA Sq Epi (test code = 39632-2) Occasional Few [facility]icians[facility] K[facility] 3 Views Bilateral [id number] 11:56:00EXAM: XR BILATERAL KNEE 3 VIEWSDATE: 01/06/2018 11:56 AM CDTINDICATION: - M17.10 Unilateral primary osteoarthritis, unspecified kneeCOMPARISON: None.TECHNIQUE: Standing AP, sunrise and lateral radiographs of both kneesFINDINGS:Right knee: No acute fracture or malalignment is identified. Joint spacesare preserved. Mild superior patellar enthesopathy.No knee joint effusion is present. No soft tissue abnormality is identified.Left knee: No acute fracture or malalignment is identified. There isnarrowing of the medial compartment with associated marginal osteophyteformation. Mild superior patellar enthesopathy.No knee joint effusion is present. No soft tissue abnormality is identified.IMPRESSION: 1. No acute bony injury.2. Moderate left medial compartment osteoarthritis.3. No significant degenerative change of the right knee.--This report was dictated by a Divine Healer/Fellow. I have personallyreviewed the images aswell as the Resident's interpretation and agree with the findings.Read by: Angelito Hernandez (Fellow) Resident: Angelito Hernandez(Fellow)Dictated Date/time: 01/06/18 12:46Electronically Signed by: Lillian Robles MD 01/06/1815:05FINAL REPORT [facility] PhysiciansUS Retroperitoneal Complete [id number] 14:06:00Exam: Bilateral renal ultrasound.Reason for Exam: Flank pain, chronic - R10.9 Unspecified abdominal painComparison Exam: NoneDiscussion:Multiplanar grayscale and color Doppler ultrasound of the kidneys, aorta, IVC,and urinary bladder.Right kidney:Size: 9.7 x 4.4 x 4.7 cm. Cortical thickness measures 1.0 cm.Hydronephrosis: None.Echogenicity: UnremarkableCalculi/Cysts/Masses: 9 mm hyperechoic echogenicity seen within the rightkidney likely representing a nonobstructing calcified stone.Left kidney:Size: 9.8 x 5.0 x 4.7 cm. Cortical thickness measures 1.2 cm.Hydronephrosis: None.Echogenicity: UnremarkableCalculi/Cysts/Masses: None.Abdominal aorta/Iliac arteries:Visualized portions are unremarkable.Inferior vena cava: Visualized portions are unremarkableBladder: Unremarkable.IMPRESSION:1. Echogenicity of the kidneys is unremarkable. 9 mm hyperechoic echogenicityseen within the right kidney likely representing a nonobstructing calcifiedstone.--Read by: Sammy Batista MDDictated Date/time: 12/22/17 17:39Electronically Signed by: Sammy Batista MD 12/22/1816:41[facility]] CBC (INCLUDES DIFF/PLT)2017-12-18 10:33:01* Test Item Value Reference Range Interpretation Comments WBC (test code = 6690-2) 4.6 {K/CMM} 3.7-10.4 RBC (test code = 789-8) 4.27 {M/CMM} 4.20-5.40 Hgb; Below Low Threshold (test code = 718-7) 11.9 g/dl 12.0-16.0 Hct; Below Low Threshold (test code = 67741-4) 35.9 % 36.0-48 .0 MCV (test code = 787-2) 84.0 fL 80.0-98.0 MCH (test code = 785-6) 27.9 pg 27.0-31.0 MCHC (test code = 786-4) 33.2 g/dl 32.0-36.0 RDW; Above High Threshold (test code = 788-0) 15.6 % 11.5-14. 5 Platelet (test code = 14805-8) 180 {K/CMM} 133-450 Mean Platelet Volume; Above High Threshold (test code = 3262 3-1) 11.0 fL 7.4-10.4 [facility]] Hrlhniopszcz3526-23-96 10:33:01* Test Item Value Reference Range Interpretation Comments Segmented Neutrophils; Below Low Threshold (test code = 2650 5-8) 44.0 % 45.0-75.0 Monocytes (test code = 86081-1) 9.9 % 2.0-12.0 Lymphocytes; Above High Threshold (test code = 70977-9) 42.5 % 20.0-40.0 Eosinophils (test code = 45051-4) 3.3 % 0.0-4.0 Basophils (test code = 706-2) 0.3 % 0.0-1.0 Segs-Bands # (test code = 08580-6) 2.0 {K/CMM} 1.5-8.1 Lymphocytes # (test code = 94114-6) 2.0 {K/CMM} 1.0-5.5 Monocytes # (test code = 39106-8) 0.5 {K/CMM} 0.0-0.8 Eosinophils # (test code = 76646-0) 0.2 {K/CMM} 0.0-0.5 [facility]] CMP [id number]/TFDC8888-78-45 10:33:01* Test Item Value Reference Range Interpretation Comments Sodium Level (test code = 2951-2) 142 {mEq/l} 135-145 Potassium Level (test code = 2823-3) 4.0 {mEq/l} 3.5-5.1 Chloride Level (test code = 5-0) 104 {mEq/l} 95-109 Carbon Dioxide (test code = 2027-9) 30 {mEq/l} 24-32 AGAP (test code = 95762-0) 12.0 {mEq/l} 10.0-20.0 Glucose Lvl; Above High Threshold (test code = 2345-7) 117 mg/dl 70-99 Adult reference range values reflect the clinical guidelinesof the [place] [employer]. Creatinine Lvl (test code = 2160-0) 1.20 mg/dl 0.50-1.40 Blood Urea Nitrogen; Above High Threshold (test code = 3094-0) 24 m g/dl 7-22 BUN/Creatinine Ratio (test code = 3097-3) 20 6-25 Total Protein (test code = 2885-2) 7.3 g/dl 6.4-8.4 Albumin Lvl (test code = 1751-7) 3.9 g/dl 3.5-5.0 Globulin (test code = 24899-8) 3.4 g/dl 2.7-4.2 A/G Ratio (test code = 1759-0) 1.1 0.7-1.6 Calcium Level Total (test code = 11842-4) 9.7 mg/dl 8.5-10.5 ALT (test code = 1743-4) 17 u/l 0-65 AST (test code = 15196-9) 18 u/l 0-37 Alk Phos (test code = 1783-0) 98 u/l 39-136 Bili Total (test code = 1975-2) 0.3 mg/dl 0.2-1.3 eGFR (test code = 64165-4) 53 {ML/MIN/1.7} The eGFR is calculated using the CKD-EPI formula. In most young, healthyindividuals the eGFR will be >90 mL/min/1.73m2. The eGFR declines with age. AneGFR of 60-89 may be normal in some populations, particularly the elderly, forwhom the CKD-EPI formula has not been extensively validated. Use of the eGFR isnot recommended in the following populations:Individuals with unstable creatinine concentrations, including patients and those with serious co-morbid conditions.Patients with extremes in muscle mass or diet.The data above are obtained from the National Kidney Disease Education Program(NKDEP) which additionally recommends that when the eGFR is used in patientswith extremes of body mass index for purposes of drug dosing, the eGFR shouldbe multiplied by the estimated BMI. [employer] [facility]] TSH, 3RD WEBFTEOOGD2260-70-64 10:33:01* Test Item Value Reference Range Interpretation Comments TSH (test code = 85499-7) 2.650 {uIU/ml} 0.360-3.740 [facility][Q] LIPID PANEL WITH REFLEX TO DIRECT LDL 2017-12-18 10:33:01* Test Item Value Reference Range Interpretation Comments Chol; Above High Threshold (test code = 2093-3) 211 mg/dl <=199 Trig; Above High Threshold (test code = 2571-8) 192 mg/dl <=149 HDL Cholesterol; Below Low Threshold (test code = 2085-9) 46 mg/dl >=61 CHD Risk (test code = 83345-7) 4.59 3.90-5.80 LDL; Above High Threshold (test code = 96885-7) 127 mg/dl <=99 VLDL (test code = VLDL) 38 [facility]] HEMOGLOBIN [id number] 10:33:01* Test Item Value Reference Range Interpretation Comments Hemoglobin A1c; Above High Threshold (test code = 4548-4) 6.0 % <=5.6 [facility][O] Flu Test (in Office )2017-04-29 15:21:00* Test Item Value Reference Range Interpretation Comments Flu A (test code = Flu A) neg N Flu B (test code = Flu B) neg N [facility] PhysiciansCHEM BYOUK0025-42-05 05:40:0060[facility] CHEM DLSNP7083-54-04 05:40:001.09[facility]annCHEM UGHED3758-57-25 05:40:00 135[facility]annCHEM NYGYQ6648-80-79 05:40:0026[facility]annCHEM PANEL 2015-09-02 05:40:38852Vnngkovm HermannCHEM KGHEY4831-33-82 05:40:008.6[facility]annCHEM DHEWE4571-88-32 05:40:0029[facility]annCHEM UDUST8156-56-06 05:40:004.2[facility]annCHEM TTJZY6571-37-51 05:40:41769Skuxfgkb HermannCHEM RNNJI2687-43-24 05:40:0010.2[facility]annCHEM UIKTJ0314-49-39 05:40:002.6 [facility]CHE[facility] AUEVB8458-56-40 05:40:002.1[facility]annHEMATOLOGY 2015-09-02 05:40:009.3[facility] TtbpxvoXPGHJWFCKQ4492-48-16 05:40:0027.2[facility] IvnjtkjHJISNLQFLZ0914-80-74 05:40:003.27[facility] HtmtwddIYZVJZDTOQ5953-32-71 05:40:00* Test Item Value Reference Range Interpretation Comments MCH (test code = MCH) 28.5 pg 27.0-31.0 [facility] PqvwlkqWYVFBGIPXZ0961-40-15 05:40:0083.1[facility]annHEMATOLOGY 2015-09-02 05:40:0010.2[facility] SeitngfFLXGLHCCLK0958-73-48 05:40:0034.3[facility] VsdpzznLFHNFPCPVS0522-31-96 05:40:31073Gdccahzk ItmzjztFVBKYKJRYA3841-92-87 05:40:0015.3[facility] EsmsuvcDKMNOQPGAH6197-78-98 05:40:007.8[facility] BQCIWTHXTS4197-89-89 05:40:001.01[facility] AuuivvnRTPZRYONJW4833-80-75 05:40:00* Test Item Value Reference Range Interpretation Comments PTT (test code = PTT) 35.6 s 22.9-35.8 [facility] DaqizrqSCZXUPJYUE9958-02-50 05:40:00* Test Item Value Reference Range Interpretation Comments PT (test code = PT) 13.6 s 12.0-14.7 [facility] VzxtjzsEADLWASSZF1870-89-26 05:40:000.1[facility]annHEMATOLOGY 2015-09-02 05:40:005.6[facility] UmyugfxHPDYQZPAIY0106-09-59 05:40:000.8[facility] BlikwsxZWPMINMVJI8409-63-07 05:40:000.6[facility] ImotbatSCSINKDMDM4773-14-16 05:40:001.5[facility] GjhsiwcWPIZVQQSZQ7039-42-30 05:40:000.4[facility] KGULFFXAYP5911-04-43 05:40:007.5[facility] PkgqycwBDYRQZHUMO7067-23-82 05:40:00 19.3[facility] AiuvamxZCTUFJWPMR1758-51-68 05:40:0072.0[facility] HermannPARATHYROID AHFRXMG2904-57-39 05:40:001.28[facility] HermannPARATHYROID TTQYUXW1818-53-64 05:40:001.25[facility] BwbvjqtGVHTUVYYKR7774-10-20 12:11:00* Test Item Value Reference Range Interpretation Comments POC Activated Clotting Time (test code = POC Activated Clotting Juan e) 153 s [facility] RtcfqkcOVSTWNDXLZ7667-32-04 11:03:00* Test Item Value Reference Range Interpretation Comments POC Activated Clotting Time (test code = POC Activated Clotting Juan e) 162 s [facility] JalgzflLIWDIDDBBT7325-47-60 07:12:00* Test Item Value Reference Range Interpretation Comments POC Activated Clotting Time (test code = POC Activated Clotting Juan e) 182 s [facility]CHEM NKDGP1672-31-82 06:04:0062[facility]annCHEM PANEL 2015-09-01 06:04:001.06[facility]annCHEM UNLET9597-49-20 06:04:16817Wbaduqwt HermannCHEM RVUXI2451-89-18 06:04:45191Kasikhkz HermannCHEM JNTQE2742-23-57 06:04:0022[facility]annCHEM MEKCA8389-54-57 06:04:009.4[facility]annCHEM IIDNA7522-29-72 06:04:0013.2[facility]annCHEM WUNVL2688-82-16 06:04:48793 [facility]annCHE[facility] PKXBM0741-86-82 06:04:0026[facility]annCHEM PANEL 2015-09-01 06:04:004.2[facility]annCHEM CFKYC0014-96-89 06:04:003.2[facility]annCHEM ZIFOR4813-47-18 06:04:002.1[facility] LwmcaijPHBHGGGUSN3523-99-75 06:04:00* Test Item Value Reference Range Interpretation Comments PT (test code = PT) 16.5 s 12.0-14.7 [facility] GpzfudgNJLVONHYBO6562-64-36 06:04:001.30[facility]annHEMATOLOGY 2015-09-01 06:04:0010.4[facility] KhdfkbzQKYRLSQPPR5138-48-00 06:04:0015.3[facility] WqmzrljSFHVRPXWKA2150-72-92 06:04:41757Dplwmyuh OoatohsGXUFWNJRJJ9000-48-54 06:04:0084.2[facility] TyhaoqyVBLEGYHQBO9876-92-19 06:04:0031.9[facility] XSHDCICAJZ7765-18-11 06:04:00* Test Item Value Reference Range Interpretation Comments MCH (test code = MCH) 26.9 pg 27.0-31.0 [facility] DfjoqunYCBOTAYYTR8386-80-24 06:04:004.03[facility]annHEMATOLOGY 2015-09-01 06:04:0010.8[facility] VqkutafZTJRJWDXYC5903-66-83 06:04:0033.9[facility] RsfnhffYGTEBIFTUD9061-65-50 06:04:007.3[facility] NhylgyeEPLGXIKHWC9203-92-26 06:04:000.1[facility] AhsnncbACPGXNWCCQ4392-07-25 06:04:000.9[facility] JNKQDFVDMK0205-29-32 06:04:000.3[facility] NobgsdvANFPNQESQD7873-11-06 06:04:006.3 [facility] EmhawhjQATTGVWKSK5687-15-60 06:04:0087.3[facility]annHEMATOLOGY 2015-09-01 06:04:0011.7[facility] OwcrzllAYKGWLEWHP4497-78-19 06:04:000.7[facility] VsescxfSCFIKP8521-40-15 06:04:0023[facility] DvcvcqiUTQAWW4714-95-50 06:04:97331 [facility] MgxgpwqQINCRB7724-54-56 06:04:002.74[facility] LjjkjdsRBADNB7581-53-65 06:04:0065[facility] VboiwqhMHMAGA2540-48-12 06:04:005[facility] HermannLIPIDS 2015-09-01 06:04:36502Ixsnveex HermannPARATHYROID DWJKXLD4037-63-88 06:04:001.23 [facility] HermannPARATHYROID OUOJIWS4033-74-01 06:04:001.24[facility] SPECIAL CTLUIFGVI3462-30-76 06:04:006.1[facility] HermannBLOOD BANK RESULTS 2015-08-31 16:27:00Negative (08/31/15 11:27 AM)[facility]annCHEM PANEL 2015-08-31 16:27:0046[facility] HermannCHEM CVCJH3787-31-23 16:27:009.8[facility] HermannCHEM NPOWS2054-07-09 16:27:0030[facility] HermannCHEM PAXLI5349-30-16 16:27:63545Ntkrctie HermannCHEM HXOZK1882-22-99 16:27:001.35[facility] HermannCHEM RWUZF1501-44-50 16:27:38408Snfuqbki HermannCHEM MKGQZ0793-72-03 16:27:0035 [facility]annCHEM CCRZO8580-04-01 16:27:004.1[facility] HermannCHEM PANEL 2015-08-31 16:27:08642Iklqcsmh HermannCHEM HPMWZ8374-63-41 16:27:0013.1[facility]annCHEM IONQY1167-22-55 16:27:002.1[facility] JpicbqyFHADPLCYDI6350-44-80 16:27:000.97[facility] LvprcowORBZGQNMEU0640-13-90 16:27:00* Test Item Value Reference Range Interpretation Comments PT (test code = PT) 13.2 s 12.0-14.7 [facility] XvxqjecRJZORLSMKQ7889-06-25 16:27:00* Test Item Value Reference Range Interpretation Comments PTT (test code = PTT) 38.1 s 22.9-35.8 [facility] HcikgjjDOIYWASAAP0522-05-45 16:27:08707Bgfjeejj HermannHEMATOLOGY 2015-08-31 16:27:0015.3[facility] DyrfisqKMYCGYDFVL0431-95-00 16:27:0010.5[facility] EshifzqLHJWNYJCYT0538-88-76 16:27:004.9[facility] SskqtosEYABTXIAOB9264-15-69 16:27:0010.6[facility] JonbjecCSDSPTROUP5178-27-80 16:27:003.90[facility] QHOMDRYDGV8751-35-05 16:27:00* Test Item Value Reference Range Interpretation Comments MCH (test code = MCH) 27.2 pg 27.0-31.0 [facility] SjaxdvyREKHNTHXYI1243-45-29 16:27:0085.2[facility]annHEMATOLOGY 2015-08-31 16:27:0033.2[facility] CqcksgqZDAOMGWUUW5446-17-16 16:27:0032.0[facility] WvnipitEGWUPXVVUI0608-05-42 16:27:000.2[facility] PlbzuirZFSAXUBQIH0670-15-21 16:27:001.4[facility] MytstdaIRWPYCRKJV4935-39-64 16:27:000.5[facility] OJOGAIGDEB6952-35-30 16:27:002.8[facility] AtdkylcQOPXDEWGID1817-27-55 16:27:009.3 [facility] DkhvxejMAIAFLXSJM9965-58-81 16:27:003.9[facility] HermannHEMATOLOGY 2015-08-31 16:27:0028.9[facility] RgwqmiwVOLNMDJCFR8733-28-96 16:27:0057.3[facility] DzaliivXRPWECENMN6585-36-98 16:27:000.6[facility] NpecsrgUBAZANRSBVAP6507-53-03 14:09:0013.2[facility] EjgpaegOQKUKQVQBAIJ7586-55-55 14:09:0048[facility] NQWOYWICSMPS0200-52-63 14:09:001.30[facility] PiiepvdTHGDPBILVCKE6848-56-36 14:09:009.6[facility] QnutykuDGBKJMILTJFZ9297-04-35 14:09:0029[facility] SSAWUCVFUIHV6995-12-19 14:09:08723Afetbzeo TvfsiqdADUGVACNZNGL5889-17-27 14:09:0030[facility] NeyehwgWAIXRPNSKWJM6260-10-24 14:09:003.2[facility] HFFUYYFBPGCH0668-10-55 14:09:09195Eqwiqkkk BdifbnhSNTKWHKITTPF7525-08-44 14:09:50361Qzffuuko VtwqqxlSILIEAILTQAZN5671-54-59 14:09:00Negative *NA*(05/09/15 8:09 AM)[facility] WthmcmrKIDOAFRXWX3744-49-39 14:09:0010.2[facility] NEOXVUDQQF2952-14-09 14:09:98217Iklpnmtu RbkzcnlLWZUGVFSPR8818-97-15 14:09:00 15.7[facility] UznmempPOJQJVZOCX6965-41-83 14:09:0032.2[facility] HermannHEMATOLOGY 2015-05-09 14:09:00* Test Item Value Reference Range Interpretation Comments MCH (test code = MCH) 27.3 pg 27.0-31.0 [facility] WlgxwjdYXJVLWPNGD6797-09-29 14:09:004.25[facility]annHEMATOLOGY 2015-05-09 14:09:005.4[facility] MyfvnegIPIGAMKMWB8954-78-41 14:09:0084.5[facility] AarvwaoXLECHWGCTD8013-66-48 14:09:0036.0[facility] YivrarhQTMKHESPYT9611-47-40 14:09:0011.6[facility] ZintafhIUILGUXOGU4611-28-73 14:09:000.93[facility] ZGKIKBQEEO6405-25-15 14:09:00* Test Item Value Reference Range Interpretation Comments PT (test code = PT) 12.8 s 12.0-14.7 [facility] OalzcoiZXAAMNUOQM2344-44-76 14:09:00* Test Item Value Reference Range Interpretation Comments PTT (test code = PTT) 42.7 s 22.9-35.8 [facility] NmavwftUQURERJFWR9577-31-34 14:09:000.2[facility]annHEMATOLOGY 2015-05-09 14:09:000.5[facility] WrgzmymATPDWGLWGY1947-50-39 14:09:001.7[facility] GoupehiTCCALCOUOI5287-09-31 14:09:003.2[facility] PpgzxgvOKITJHTTOW5737-00-48 14:09:000.9[facility] JmcejktANNRVSSLSO7747-35-11 14:09:003.0[facility] QNZVSZZZLK7883-50-51 14:09:009.6[facility] ApeevaeUDYXEQECQS5953-28-88 14:09:00 31.4[facility] UuzxhmoHQZOJABBIR1790-03-13 14:09:0054.9[facility]
== END 2020-03-23 02:00 | disposition home or self-care (01) ==
LOC: ER 01:45
DX: I10 Essential (primary) hypertension (principal); R94.31 Abnormal electrocardiogram [ECG] [EKG]; Z85.3 Personal history of malignant neoplasm of breast
CPT/HCPCS: 93005; 99282

== ENCOUNTER 2022-09-23 19:02 | Emergency (ER) | payer MEDICARE ==
[~2022-09-23] VITALS: Ht 157.5 cm; Wt 78.0 kg
[2022-09-23] MEDS ORDERED: MECLIZINE HCL 12.5 MG TAB PO ONE (20:00)
[2022-09-23] MEDS ORDERED: HYDRALAZINE HCL 20 MG/ML VIAL IV STA ×2 (22:06→23:50)
[2022-09-23] MEDS ORDERED: SODIUM CHLORIDE 0.9% 1000ML 1,000 ML IV STA (22:06)
[2022-09-23 22:26] LABS: BASOPHILS % 0.6 % (0.0-1.0); EOSINOPHILS # (AUTO) 0.1 (0.0-0.4); EOSINOPHILS % 3.6 % (0.0-6.0); HEMOGLOBIN 11.8 g/dL (12.0-16.0); LYMPHOCYTES # (AUTO) 1.4 (1.0-3.2); LYMPHOCYTES % 39.2 % (18.0-39.1); MEAN CORPUSCULAR HEMOGLOBIN 27.1 pg (28-32); MEAN CORPUSCULAR HGB CONC 31.1 g/dL (31-35); MEAN CORPUSCULAR VOLUME 87.4 fL (81-99); MONOCYTES # (AUTO) 0.4 (0.2-0.8); NEUTROPHILS # (AUTO) 1.7 (2.1-6.9); NEUTROPHILS % 45.6 % (38.7-80.0); PLATELET COUNT 165 x10e3/uL (140-360); RED BLOOD COUNT 4.35 x10e6/uL (3.6-5.1); RED CELL DISTRIBUTION WIDTH 14.5 % (11.7-14.4)
[2022-09-23 22:51] LABS: ALBUMIN 3.6 g/dL (3.5-5.0); ALBUMIN/GLOBULIN RATIO 1.1 (0.8-2.0); CALCIUM 9.9 mg/dL (8.4-10.2); CREATININE, SERUM 1.07 mg/dL (0.57-1.11)
[2022-09-23 22:58] LABS: CREATINE KINASE MB 2.9 ng/mL (0-5.0)
[2022-09-24] MEDS ORDERED: CLONIDINE HCL 0.2 MG TAB PO ONE (01:00)
[2022-09-24] MEDS ORDERED: MECLIZINE HCL25 MG PO (01:29)
[2022-09-24 02:19] VITALS: BP 163/61; PULSE 65; O2SAT 100
== END 2022-09-24 02:18 | disposition home or self-care (01) ==
LOC: ER 20:30
DX: R42 Dizziness and giddiness (principal); I16.0 Hypertensive urgency; I10 Essential (primary) hypertension; Z85.3 Personal history of malignant neoplasm of breast; Z95.5 Presence of coronary angioplasty implant and graft
CPT/HCPCS: 36415; 70450; 80053; 82550; 82553; 84484; 85025; 93005; 99284; J0360; J7030; J8597